=== PATIENT | male | born 1955 | race Caucasian/White ===

== ENCOUNTER 2020-02-16 22:25 | Observation (INO) | payer MEDICARE ==
[2020-02-16] MEDS ORDERED: Zofran 4 MG/2 ML VIAL IV ONE (22:40)
[2020-02-16] MEDS ORDERED: MORPHINE SULFATE 2 MG INJ IV ONE (22:40)
--- NOTE | 2020-02-16 22:53 | ERPHSYRPT ---
- History of Present Illness Time Seen by Provider: 02/16/20 22:50 Source: patient Exam Limitations: other (MR) Patient Subjective Stated Complaint: pt's poa states that he fell this afternoon and has had lt side pain only with movement and standing. pt states he also has had 2 stools with blood n them today. unable to describe stools or amount of blood Triage Nursing Assessment: pt alert and oriented, answers questions, unable to answer some questions d/t skin warm and dry. respirations nonlabored with lungs cta. abd soft and nontender to light palpation. bowel sounds present x4. no stools at this time. Physician History: Patient is a 64-year-old male with a history of MR who presents to our ED with his POA/uncle for evaluation of abdominal pain and bloody stool. Patient reportedly fell today. After his fall patient complained of left sided abdominal pain. Pain was primarily with movement and standing. Patient's uncle examined patient and found patient to be tender at his left abdomen. Later toda y patient had a bloody bowel movements. Patient advised his uncle and his uncle brought patient to our ED. Upon arrival patient was found to be febrile. Patient was tachycardic as well. Patient states that he had 2 bloody bowel movements. However he is unable to quantify the quality and quantity of the blood observed. No other injuries reported. Pain described as an ache that is localized. No radiation. Pain improved with rest. Patient voices no other complaints at this time. Allergies/Adverse Reactions: penicillin G Allergy (Intermediate, Verified 05/22/15 12:38) Hives Hx Tetanus, Diphtheria Vaccination/Date Given: Yes Hx Influenza Vaccination/Date Given: Yes Hx Pneumococcal Vaccination/Date Given: Yes Immunizations Up to Date: Yes Travel Risk - International Travel Have you traveled outside of the country in past 3 weeks: No - Coronavirus Screening Are you exhibiting any of the following symptoms?: Yes Symptoms: Fever Close contact with a COVID-19 positive Pt in past 14-21 Days: No - Past Medical History Pertinent Past Medical History: Yes Cardiac History: Hypertension Respiratory History: Other Endocrine Medical History: Hypothyroidism GI Medical History: Diverticulitis, GERD, Hernia Psycho-Social History: Anxiety, Attention Deficit Disorder, Depression Other Medical History: MILD RETARDATION. sees dr garcia and uses inhalers- unsure of diagnosis - Past Surgical History Past Surgical History: Yes Gastrointestinal: Hernia Repair - Social History Smoking Status: Never smoker Exposure to second hand smoke: No Drug Use: none Patient Lives Alone: Yes (lives with brother) - Nursing Vital Signs Nursing Vital Signs: Initial Vital Signs Temperature 101 F 02/16/20 22:41 Pulse Rate 123 H 02/16/20 22:41 Respiratory Rate 16 02/16/20 22:41 Blood Pressure 167/91 02/16/20 22:41 O2 Sat by Pulse Oximetry 97 02/16/20 22:41 Pain Scale Pain Intensity 10 - Physical Exam SpO2: 97 Ordered Tests: Active Orders 24 hr Category Date Time Status IV Insertion STAT Care 02/16/20 22:40 Active ABDOMEN AND PELVIS W CONTRAST [CT] Stat Exams 02/16/20 22:41 Ordered BLOOD CULTURE Stat Lab 02/16/20 23:08 Received CBC W DIFF Stat Lab 02/16/20 23:07 Completed CMP Stat Lab 02/16/20 23:07 Received LIPASE Stat Lab 02/16/20 23:07 Received Lactic Acid Stat Lab 02/16/20 23:00 Completed TROPONIN Q3H Lab 02/16/20 23:07 Received TROPONIN Q3H Lab 02/17/20 01:45 Ordered TROPONIN Q3H Lab 02/17/20 04:45 Ordered TROPONIN Q3H Lab 02/17/20 07:45 Ordered TROPONIN Q3H Lab 02/17/20 10:45 Ordered UA W/RFX UR CULTURE Stat Lab 02/16/20 23:57 Received Medication Summary Generic Name Dose Route Start Last Admin Trade Name Freq PRN Reason Stop Dose Admin Sodium Chloride 1,000 mls @ 100 mls/hr 02/16/20 22:45 02/16/20 23:33 Sodium Chloride 0.9% 1000 Ml IV 03/17/20 22:44 100 mls/hr .Q10H CARLOS Administration Sodium Chloride 500 mls @ 500 mls/hr 02/16/20 23:37 Sodium Chloride 0.9% 500 Ml IV 02/17/20 00:36 .Q1H ONE Discontinued Medications Generic Name Dose Route Start Last Admin Trade Name Freq PRN Reason Stop Dose Admin Morphine Sulfate 2 mg 02/16/20 22:40 02/16/20 23:31 Morphine Sulfate 2 Mg Inj IV 02/16/20 22:41 2 mg STAT ONE Administration Morphine Sulfate Confirm 02/16/20 23:26 Morphine Sulfate 2 Mg Inj Administered 02/16/20 23:27 Dose 2 mg .ROUTE .STK-MED ONE Ondansetron HCl 4 mg 02/16/20 22:40 02/16/20 23:32 Zofran 4 Mg/2 Ml Vial IV 02/16/20 22:41 4 mg STAT ONE Administration Ondansetron HCl Confirm 02/16/20 23:26 Zofran 4 Mg/2 Ml Vial Administered 02/16/20 23:27 Dose 4 mg .ROUTE .STK-MED ONE Lab/Rad Data: Laboratory Result Diagrams 02/16/20 23:07 Laboratory Results 02/16/20 02/16/20 Range/Units 23:07 23:00 WBC 11.7 H (4.0-10.5) K/mm3 RBC 4.47 (4.1-5.6) M/mm3 Hgb 13.7 (12.5-18.0) gm/dl Hct 40.7 L (42-50) % MCV 91.1 (78-100) fl MCH 30.6 (26-32) pg MCHC 33.7 (32-36) g/dl RDW 14.1 H (11.5-14.0) % Plt Count 273 (150-450) K/mm3 MPV 9.4 (7.5-11.0) fl Gran % 94.6 H (36.0-66.0) % Eos # (Auto) 0.07 (0-0.5) Absolute Lymphs (auto) 0.37 L (1.0-4.6) Absolute Monos (auto) 0.14 (0.0-1.3) Lymphocytes % 3.2 L (24.0-44.0) % Monocytes % 1.2 (0.0-12.0) % Eosinophils % 0.6 (0.00-5.0) % Basophils % 0.4 (0.0-0.4) % Absolute Granulocytes 11.02 H (1.4-6.9) Basophils # 0.05 (0-0.4) Lactic Acid 2.2 H (0.4-2.0) - Departure Referrals: LIZBEHT COBB [Primary Care Provider] -
[2020-02-16 23:11] LABS: Absolute Neutrophil Ct (ANC) 11.02 (1.4-6.9); BASOPHIL % 0.4 % (0.0-0.4); Basophil (Absolute #) 0.05 (0-0.4); Eosinophil % 0.6 % (0.00-5.0); Eosinophil (Absolute #) 0.07 (0-0.5); Hematocrit 40.7 % (42-50); Hemoglobin 13.7 gm/dl (12.5-18.0); Lymphocyte (Absolute #) 0.37 (1.0-4.6); Lymphocytes % 3.2 % (24.0-44.0); Mean Cell Volume 91.1 fl (78-100); Mean Corpuscular Hemoglobin 30.6 pg (26-32); Mean Corpuscular Hgb Concent. 33.7 g/dl (32-36); Mean Platelet Volume 9.4 fl (7.5-11.0); Monocyte (Absolute #) 0.14 (0.0-1.3); Monocytes % 1.2 % (0.0-12.0); Neutrophil % 94.6 % (36.0-66.0); Platelet Count 273 K/mm3 (150-450); Red Blood Count 4.47 M/mm3 (4.1-5.6); Red Cell Distribution Width 14.1 % (11.5-14.0); White Blood Count 11.7 K/mm3 (4.0-10.5)
[2020-02-16] MEDS ORDERED: Zofran 4 MG/2 ML VIAL ONE (23:26)
[2020-02-16] MEDS ORDERED: MORPHINE SULFATE 2 MG INJ ONE (23:26)
[2020-02-16] MEDS: Sodium Chloride 0.9% 1000 ML 1,000 ML IV SCH (23:33)
[2020-02-16] MEDS ORDERED: Sodium Chloride 0.9% 500 ML 500 ML IV ONE (23:37)
[2020-02-17 00:09] LABS: Appearance CLEAR (CLEAR); Bilirubin NEGATIVE (NEGATIVE); Blood SMALL Ery/ul (0-5); Glucose 50 mg/dL (NEGATIVE); Ketones NEGATIVE (NEGATIVE); Leukocyte Esterase NEGATIVE (NEGATIVE); Nitrite NEGATIVE (NEGATIVE); Protein,Urine Dip NEGATIVE (Negative); Specific Gravity 1.008 (1.005-1.025); Urobilinogen NEGATIVE mg/dL (0-1)
--- NOTE | 2020-02-17 00:13 | ERPHSYRPT ---
- History of Present Illness Time Seen by Provider: 02/16/20 22:50 Patient Subjective Stated Complaint: pt's poa states that he fell this afternoon and has had lt side pain only with movement and standing. pt states he also has had 2 stools with blood n them today. unable to describe stools or amount of blood Triage Nursing Assessment: pt alert and oriented, answers questions, unable to answer some questions d/t skin warm and dry. respirations nonlabored with lungs cta. abd soft and nontender to light palpation. bowel sounds present x4. no stools at this time. Physician History: Patient is a 64-year-old male with a history of MR who presents to our ED with his POA/uncle for evaluation of abdominal pain and bloody stool. Patient reportedly fell today. After his fall patient complained of left sided abdominal pain. Pain was primarily with movement and standing. Patient's uncle examined patient and found patient to be tender at his left abdomen. Later today patient had a bloody bowel movements. Patient advised his uncle and his uncle brought patient to our ED. Upon arrival patient was found to be febrile. Patient was tachycardic as well. Patient states that he had 2 bloody bowel movements. However he is unable to quantify the quality and quantity of the blood observed. No other injuries reported. Pain described as an ache that is localized. No radiation. Pain improved with rest. Patient voices no other complaints at this time. Timing/Duration: today Activities at Onset: none Quality: aching Abdominal Pain Onset Location: other (Left abdomen.) Pain Radiation: no radiation Severity of Pain-Max: moderate Severity of Pain-Current: mild Modifying Factors: Improves With: nothing, eating, movement, palpation Associated Symptoms: fever/chills Previous symptoms: no prior history Allergies/Adverse Reactions: penicillin G Allergy (Intermediate, Verified 05/22/15 12:38) Hives Hx Tetanus, Diphtheria Vaccination/Date Given: Yes Hx Influenza Vaccination/Date Given: Yes Hx Pneumococcal Vaccination/Date Given: Yes Immunizations Up to Date: Yes Travel Risk - International Travel Have you traveled outside of the country in past 3 weeks: No - Coronavirus Screening Are you exhibiting any of the following symptoms?: Yes Symptoms: Fever Close contact with a COVID-19 positive Pt in past 14-21 Days: No - Review of Systems All Other Systems: Unable due to condition - Past Medical History Pertinent Past Medical History: Yes Cardiac History: Hypertension Respiratory History: Other Endocrine Medical History: Hypothyroidism GI Medical History: Diverticulitis, GERD, Hernia Psycho-Social History: Anxiety, Attention Deficit Disorder, Depression Other Medical History: MILD RETARDATION. sees dr garcia and uses inhalers- unsure of diagnosis - Past Surgical History Past Surgical History: Yes Gastrointestinal: Hernia Repair - Social History Smoking Status: Never smoker Exposure to second hand smoke: No Drug Use: none Patient Lives Alone: Yes (lives with brother) - Nursing Vital Signs Nursing Vital Signs: Initial Vital Signs Temperature 101 F 02/16/20 22:41 Pulse Rate 123 H 02/16/20 22:41 Respiratory Rate 16 02/16/20 22:41 Blood Pressure 167/91 02/16/20 22:41 O2 Sat by Pulse Oximetry 97 02/16/20 22:41 Pain Scale Pain Intensity 0 - Physical Exam General Appearance: no apparent distress, alert Eye Exam: PERRL/EOMI, eyes nml inspection Ears, Nose, Throat Exam: normal ENT inspection, pharynx normal, moist mucous membranes Neck Exam: normal inspection, non-tender, supple, full range of motion Respiratory Exam: normal breath sounds, lungs clear, No respiratory distress Cardiovascular Exam: regular rate/rhythm, normal heart sounds Gastrointestinal/Abdomen Exam: soft, tenderness, other (Tenderness palpation left abdomen. Overlying soft tissue intact. No signs of trauma.), No distention, No mass Back Exam: normal inspection, normal range of motion, No CVA tenderness, No vertebral tenderness Extremity Exam: normal inspection, normal range of motion, pelvis stable Neurologic Exam: alert, oriented x 3, cooperative, normal mood/affect, nml cerebellar function, sensation nml, No motor deficits Skin Exam: normal color, warm, dry Lymphatic Exam: No adenopathy SpO2 Interpretation: normal SpO2: 97 O2 Delivery: Room Air - Course Nursing assessment & vital signs reviewed: Yes - CT Exams Abdomen/Pelvis CT Interpretation: Tele-radiologist Report (Large gallbladder. Differential diagnosis includes fasting state and cholecystitis. No pericholecystic inflammatory changes.) Ordered Tests: Active Orders 24 hr Category Date Time Status IV Insertion STAT Care 02/16/20 22:40 Active ABDOMEN AND PELVIS W CONTRAST [CT] Stat Exams 02/17/20 00:03 Taken BLOOD CULTURE Stat Lab 02/16/20 23:08 Received CBC W DIFF Stat Lab 02/16/20 23:07 Completed CMP Stat Lab 02/16/20 23:07 Completed LIPASE Stat Lab 02/16/20 23:07 Completed Lactic Acid Stat Lab 02/16/20 23:00 Completed Lactic Acid Stat Lab 02/17/20 01:10 Completed TROPONIN Q3H Lab 02/16/20 23:07 Completed TROPONIN Q3H Lab 02/17/20 02:02 Completed TROPONIN Q3H Lab 02/17/20 04:45 Ordered TROPONIN Q3H Lab 02/17/20 07:45 Ordered TROPONIN Q3H Lab 02/17/20 10:45 Ordered UA W/RFX UR CULTURE Stat Lab 02/16/20 23:57 Completed Transfer Order Routine Transfer 02/17/20 Ordered Medication Summary Generic Name Dose Route Start Last Admin Trade Name Freq PRN Reason Stop Dose Admin Sodium Chloride 1,000 mls @ 100 mls/hr 02/16/20 22:45 02/16/20 23:33 Sodium Chloride 0.9% 1000 Ml IV 03/17/20 22:44 100 mls/hr .Q10H CARLOS Administration Discontinued Medications Generic Name Dose Route Start Last Admin Trade Name Freq PRN Reason Stop Dose Admin Sodium Chloride 500 mls @ 500 mls/hr 02/16/20 23:37 02/17/20 01:45 Sodium Chloride 0.9% 500 Ml IV 02/17/20 00:36 Not Given .Q1H ONE Levofloxacin/Dextrose 500 mg in 100 mls @ 100 mls/hr 02/17/20 00:23 02/17/20 01:43 Levofloxacin 500mg/100ml D5w IV 02/17/20 01:22 Infused STAT STA Infusion Metronidazole 500 mg in 100 mls @ 200 mls/hr 02/17/20 00:24 02/17/20 01:35 Flagyl 500 Mg Ivpb IV 02/17/20 00:53 Infused STAT STA Infusion Metronidazole Confirm 02/17/20 00:31 Flagyl 500 Mg Ivpb Administered 02/17/20 00:32 Dose 500 mg in 100 mls @ ud IV .STK-MED ONE Levofloxacin/Dextrose Confirm 02/17/20 00:31 Levofloxacin 500mg/100ml D5w Administered 02/17/20 00:32 Dose 500 mg in 100 mls @ ud IV .STK-MED ONE Morphine Sulfate 2 mg 02/16/20 22:40 02/16/20 23:31 Morphine Sulfate 2 Mg Inj IV 02/16/20 22:41 2 mg STAT ONE Administration Morphine Sulfate Confirm 02/16/20 23:26 Morphine Sulfate 2 Mg Inj Administered 02/16/20 23:27 Dose 2 mg .ROUTE .STK-MED ONE Ondansetron HCl 4 mg 02/16/20 22:40 02/16/20 23:32 Zofran 4 Mg/2 Ml Vial IV 02/16/20 22:41 4 mg STAT ONE Administration Ondansetron HCl Confirm 02/16/20 23:26 Zofran 4 Mg/2 Ml Vial Administered 02/16/20 23:27 Dose 4 mg .ROUTE .STK-MED ONE Lab/Rad Data: Laboratory Result Diagrams 02/16/20 23:07 02/16/20 23:07 Laboratory Results 02/17/20 02/17/20 02/16/20 Range/Units 02:02 01:10 23:57 WBC (4.0-10.5) K/mm3 RBC (4.1-5.6) M/mm3 Hgb (12.5-18.0) gm/dl Hct (42-50) % MCV (78-100) fl MCH (26-32) pg MCHC (32-36) g/dl RDW (11.5-14.0) % Plt Count (150-450) K/mm3 MPV (7.5-11.0) fl Gran % (36.0-66.0) % Eos # (Auto) (0-0.5) Absolute Lymphs (auto) (1.0-4.6) Absolute Monos (auto) (0.0-1.3) Lymphocytes % (24.0-44.0) % Monocytes % (0.0-12.0) % Eosinophils % (0.00-5.0) % Basophils % (0.0-0.4) % Absolute Granulocytes (1.4-6.9) Basophils # (0-0.4) Sodium (137-145) mmol/L Potassium (3.5-5.1) mmol/L Chloride (98-107) mmol/L Carbon Dioxide (22-30) mmol/L Anion Gap (5-15) MEQ/L BUN (9-20) mg/dL Creatinine (0.66-1.25) mg/dL Estimated GFR ML/MIN Glucose (74-106) mg/dL Lactic Acid 1.0 (0.4-2.0) Calcium (8.4-10.2) mg/dL Total Bilirubin (0.2-1.3) mg/dL AST (17-59) U/L ALT (0-50) U/L Alkaline Phosphatase (38-126) U/L Troponin I < 0.012 (0.000-0.034) ng/mL Serum Total Protein (6.3-8.2) g/dL Albumin (3.5-5.0) g/dL Lipase (23-300) U/L Urine Color STRAW (YELLOW) Urine Appearance CLEAR (CLEAR) Urine pH 7.0 (5-6) Ur Specific [place] 1.008 (1.005-1.025) Urine Protein NEGATIVE (Negative) Urine Ketones NEGATIVE (NEGATIVE) Urine Blood SMALL (0-5) Matt/ul Urine Nitrite NEGATIVE (NEGATIVE) Urine Bilirubin NEGATIVE (NEGATIVE) Urine Urobilinogen NEGATIVE (0-1) mg/dL Ur Leukocyte Esterase NEGATIVE (NEGATIVE) Urine WBC (Auto) NONE (0-5) /HPF Urine RBC (Auto) NONE (0-2) /HPF U Epithel Cells (Auto) NONE (FEW) /HPF Urine Bacteria (Auto) NONE (NEGATIVE) /HPF Urine Culture Reflexed NO (NO) Urine Glucose 50 (NEGATIVE) mg/dL 02/16/20 02/16/20 02/16/20 Range/Units 23:07 23:07 23:07 WBC 11.7 H (4.0-10.5) K/mm3 RBC 4.47 (4.1-5.6) M/mm3 Hgb 13.7 (12.5-18.0) gm/dl Hct 40.7 L (42-50) % MCV 91.1 (78-100) fl MCH 30.6 (26-32) pg MCHC 33.7 (32-36) g/dl RDW 14.1 H (11.5-14.0) % Plt Count 273 (150-450) K/mm3 MPV 9.4 (7.5-11.0) fl Gran % 94.6 H (36.0-66.0) % Eos # (Auto) 0.07 (0-0.5) Absolute Lymphs (auto) 0.37 L (1.0-4.6) Absolute Monos (auto) 0.14 (0.0-1.3) Lymphocytes % 3.2 L (24.0-44.0) % Monocytes % 1.2 (0.0-12.0) % Eosinophils % 0.6 (0.00-5.0) % Basophils % 0.4 (0.0-0.4) % Absolute Granulocytes 11.02 H (1.4-6.9) Basophils # 0.05 (0-0.4) Sodium 128 L (137-145) mmol/L Potassium 3.5 (3.5-5.1) mmol/L Chloride 93 L (98-107) mmol/L Carbon Dioxide 26 (22-30) mmol/L Anion Gap 13.7 (5-15) MEQ/L BUN 8 L (9-20) mg/dL Creatinine 0.51 L (0.66-1.25) mg/dL Estimated GFR > 60.0 ML/MIN Glucose 125 H (74-106) mg/dL Lactic Acid (0.4-2.0) Calcium 9.5 (8.4-10.2) mg/dL Total Bilirubin 1.10 (0.2-1.3) mg/dL AST 21 (17-59) U/L ALT 15 (0-50) U/L Alkaline Phosphatase 92 (38-126) U/L Troponin I < 0.012 (0.000-0.034) ng/mL Serum Total Protein 7.2 (6.3-8.2) g/dL Albumin 4.4 (3.5-5.0) g/dL Lipase 28 (23-300) U/L Urine Color (YELLOW) Urine Appearance (CLEAR) Urine pH (5-6) Ur Specific [place] (1.005-1.025) Urine Protein (Negative) Urine Ketones (NEGATIVE) Urine Blood (0-5) Matt/ul Urine Nitrite (NEGATIVE) Urine Bilirubin (NEGATIVE) Urine Urobilinogen (0-1) mg/dL Ur Leukocyte Esterase (NEGATIVE) Urine WBC (Auto) (0-5) /HPF Urine RBC (Auto) (0-2) /HPF U Epithel Cells (Auto) (FEW) /HPF Urine Bacteria (Auto) (NEGATIVE) /HPF Urine Culture Reflexed (NO) Urine Glucose (NEGATIVE) mg/dL 02/16/20 Range/Units 23:00 WBC (4.0-10.5) K/mm3 RBC (4.1-5.6) M/mm3 Hgb (12.5-18.0) gm/dl Hct (42-50) % MCV (78-100) fl MCH (26-32) pg MCHC (32-36) g/dl RDW (11.5-14.0) % Plt Count (150-450) K/mm3 MPV (7.5-11.0) fl Gran % (36.0-66.0) % Eos # (Auto) (0-0.5) Absolute Lymphs (auto) (1.0-4.6) Absolute Monos (auto) (0.0-1.3) Lymphocytes % (24.0-44.0) % Monocytes % (0.0-12.0) % Eosinophils % (0.00-5.0) % Basophils % (0.0-0.4) % Absolute Granulocytes (1.4-6.9) Basophils # (0-0.4) Sodium (137-145) mmol/L Potassium (3.5-5.1) mmol/L Chloride (98-107) mmol/L Carbon Dioxide (22-30) mmol/L Anion Gap (5-15) MEQ/L BUN (9-20) mg/dL Creatinine (0.66-1.25) mg/dL Estimated GFR ML/MIN Glucose (74-106) mg/dL Lactic Acid 2.2 H (0.4-2.0) Calcium (8.4-10.2) mg/dL Total Bilirubin (0.2-1.3) mg/dL AST (17-59) U/L ALT (0-50) U/L Alkaline Phosphatase (38-126) U/L Troponin I (0.000-0.034) ng/mL Serum Total Protein (6.3-8.2) g/dL Albumin (3.5-5.0) g/dL Lipase (23-300) U/L Urine Color (YELLOW) Urine Appearance (CLEAR) Urine pH (5-6) Ur Specific [place] (1.005-1.025) Urine Protein (Negative) Urine Ketones (NEGATIVE) Urine Blood (0-5) Matt/ul Urine Nitrite (NEGATIVE) Urine Bilirubin (NEGATIVE) Urine Urobilinogen (0-1) mg/dL Ur Leukocyte Esterase (NEGATIVE) Urine WBC (Auto) (0-5) /HPF Urine RBC (Auto) (0-2) /HPF U Epithel Cells (Auto) (FEW) /HPF Urine Bacteria (Auto) (NEGATIVE) /HPF Urine Culture Reflexed (NO) Urine Glucose (NEGATIVE) mg/dL - Progress Progress: improved Progress Note: 02/17/20 03:33 Patient reassessed. Symptoms improved. Tachycardia resolved. Patient has a leukocytosis of 11.7 with a lactic acid of 2.2. CT shows a enlarged gallbladder. Antibiotics infused. IV fluids infused. Patient describes bloody stools. He was unable to produce a sample here in our ED. This will need to be further investigated. Hyponatremia at 128. IV fluids infused. Patient will require a gallbladder ultrasound today to further evaluate the possibility of cholecystitis. Patient will likely require a colonoscopy as well possibly on an outpatient basis. We will admit patient for further work-up and observation. Plan of care discussed with patient. He agrees to admission to [facility] for further evaluation and treatment. Case discussed with Dr. Avilez who accepts admission to observation. Discussed with : Mike Will see patient in: hospital (observation) Counseled pt/family regarding: lab results, diagnosis, rad results - Departure Departure Disposition: Observation Clinical Impression: Fever, Tachycardia, GI bleed, Hyponatremia, Lactic acidosis, Enlarged gallbladder Condition: Stable Critical Care Time: No Referrals: LIZBETH COBB [Primary Care Provider] -
[2020-02-17 00:22] LABS: ALBUMIN 4.4 g/dL (3.5-5.0); ALKALINE PHOSPHATASE 92 U/L (38-126); ANION GAP 13.7 MEQ/L (5-15); BLOOD UREA NITROGEN 8 mg/dL (9-20); CHLORIDE 93 mmol/L (98-107); Calcium 9.5 mg/dL (8.4-10.2); Carbon Dioxide 26 mmol/L (22-30); Creatinine 1 0.51 mg/dL (0.66-1.25); Glucose 125 mg/dL (74-106); LIPASE 28 U/L (23-300); Potassium 3.5 mmol/L (3.5-5.1); SGOT/AST 21 U/L (17-59); SGPT/ALT 15 U/L (0-50); SODIUM 128 mmol/L (137-145); Total Protein 7.2 g/dL (6.3-8.2)
[2020-02-17] MEDS ORDERED: Levofloxacin 500MG/100ML D5W 500 MG/100 ML BAG IV STA (00:23)
[2020-02-17] MEDS ORDERED: FLAGYL 500 MG IVPB 500 MG/100 ML BAG IV STA (00:24)
[2020-02-17] MEDS ORDERED: FLAGYL 500 MG IVPB 500 MG/100 ML BAG IV ONE (00:31)
[2020-02-17] MEDS ORDERED: Levofloxacin 500MG/100ML D5W 500 MG/100 ML BAG IV ONE (00:31)
[2020-02-17] MEDS ORDERED: PROTONIX 40 MG IV IV ONE ×2 (03:42→03:46)
[2020-02-17] MEDS ORDERED: MORPHINE SULFATE 2 MG INJ IV PRN (04:33)
[2020-02-17] MEDS ORDERED: DILAUDID 2 MG INJECTION IV PRN (07:10)
--- NOTE | 2020-02-17 08:49 | PCM.HP ---
History of Present Illness - Chief Complaint Chief Complaint: Fever, abdominal pain Date: 02/17/20 History of Present Illness: is a 64 year old male. - Review of Systems Constitutional: No Fever, No Chills Eyes: No Symptoms Ears, Nose, & Throat: No Symptoms Respiratory: No Cough, No Short Of Breath Cardiac: Chest Pain (lateral to palpation after fell prior to onset of symptoms), No Edema, No Syncope Abdominal/Gastrointestinal: Abdominal Pain, No Nausea, No Vomiting, No Diarrhea Genitourinary Symptoms: No Dysuria Musculoskeletal: No Back Pain, No Neck Pain Skin: No Rash Neurological: No Dizziness, No Focal Weakness, No Sensory Changes Psychological: No Symptoms Endocrine: No Symptoms Hematologic/Lymphatic: No Symptoms Immunological/Allergic: No Symptoms Medications & Allergies Allergies/Adverse Reactions: Allergies Allergy/AdvReac Type Severity Reaction Status Date / Time penicillin G Allergy Intermediate Hives Verified 05/22/15 12:38 - Past Medical History Past Medical History: Yes Cardiac History: Hypertension Respiratory History: Other Endocrine Medical History: Hypothyroidism GI Medical History: Diverticulitis, GERD, Hernia Pyscho-Social History: Anxiety, Attention Deficit Disorder, Depression Comment: MILD RETARDATION. sees dr garcia and uses inhalers- unsure of diagnosis - Past Surgical History Past Surgical History: Yes GI Surgical History: Hernia Repair - Social History Smoking Status: Never smoker Exposure to second hand smoke: No Alcohol: None Drug Use: none - Physical Exam Vital Signs: Vital Signs - 24 hr Temp Pulse Resp BP Pulse Ox 02/17/20 08:00 98.5 F 87 21 112/61 96 02/17/20 04:56 98.2 F 87 18 130/68 99 02/17/20 04:33 99 02/17/20 03:37 97 02/17/20 03:17 97 H 20 122/67 96 02/17/20 02:15 109 H 123/74 97 02/17/20 01:06 114 H 145/83 96 02/16/20 23:30 114 H 23 150/88 97 02/16/20 22:41 101 F 123 H 16 167/91 97 General Appearance: no apparent distress, alert Neurologic Exam: alert, oriented x 3, cooperative, normal mood/affect, nml cerebellar function, nml station & gait, sensation nml, No motor deficits Eye Exam: PERRL/EOMI, eyes nml inspection Ears, Nose, Throat Exam: normal ENT inspection, TMs normal, pharynx normal, moist mucous membranes Neck Exam: normal inspection, non-tender, supple, full range of motion Respiratory Exam: normal breath sounds, chest tenderness (lateral left mid ribs), lungs clear, No respiratory distress Cardiovascular Exam: regular rate/rhythm, normal heart sounds, normal peripheral pulses Gastrointestinal/Abdomen Exam: soft, normal bowel sounds, No tenderness, No mass Back Exam: normal inspection, normal range of motion, No CVA tenderness, No vertebral tenderness Extremity Exam: normal inspection, normal range of motion, pelvis stable Skin Exam: normal color, warm, dry, No rash Lymphatic Exam: No adenopathy Results - Labs Lab/Micro Results: Lab Results-Last 24 Hours 02/16/20 02/16/20 02/16/20 Range/Units 23:00 23:07 23:07 WBC 11.7 H (4.0-10.5) K/mm3 RBC 4.47 (4.1-5.6) M/mm3 Hgb 13.7 (12.5-18.0) gm/dl Hct 40.7 L (42-50) % MCV 91.1 (78-100) fl MCH 30.6 (26-32) pg MCHC 33.7 (32-36) g/dl RDW 14.1 H (11.5-14.0) % Plt Count 273 (150-450) K/mm3 MPV 9.4 (7.5-11.0) fl Gran % 94.6 H (36.0-66.0) % Eos # (Auto) 0.07 (0-0.5) Absolute Lymphs (auto) 0.37 L (1.0-4.6) Absolute Monos (auto) 0.14 (0.0-1.3) Lymphocytes % 3.2 L (24.0-44.0) % Monocytes % 1.2 (0.0-12.0) % Eosinophils % 0.6 (0.00-5.0) % Basophils % 0.4 (0.0-0.4) % Absolute Granulocytes 11.02 H (1.4-6.9) Basophils # 0.05 (0-0.4) Sodium 128 L (137-145) mmol/L Potassium 3.5 (3.5-5.1) mmol/L Chloride 93 L (98-107) mmol/L Carbon Dioxide 26 (22-30) mmol/L Anion Gap 13.7 (5-15) MEQ/L BUN 8 L (9-20) mg/dL Creatinine 0.51 L (0.66-1.25) mg/dL Estimated GFR > 60.0 ML/MIN Glucose 125 H (74-106) mg/dL Lactic Acid 2.2 H (0.4-2.0) Calcium 9.5 (8.4-10.2) mg/dL Total Bilirubin 1.10 (0.2-1.3) mg/dL AST 21 (17-59) U/L ALT 15 (0-50) U/L Alkaline Phosphatase 92 (38-126) U/L Troponin I (0.000-0.034) ng/mL Serum Total Protein 7.2 (6.3-8.2) g/dL Albumin 4.4 (3.5-5.0) g/dL Lipase 28 (23-300) U/L Urine Color (YELLOW) Urine Appearance (CLEAR) Urine pH (5-6) Ur Specific Spearfish (1.005-1.025) Urine Protein (Negative) Urine Ketones (NEGATIVE) Urine Blood (0-5) Mtat/ul Urine Nitrite (NEGATIVE) Urine Bilirubin (NEGATIVE) Urine Urobilinogen (0-1) mg/dL Ur Leukocyte Esterase (NEGATIVE) Urine WBC (Auto) (0-5) /HPF Urine RBC (Auto) (0-2) /HPF U Epithel Cells (Auto) (FEW) /HPF Urine Bacteria (Auto) (NEGATIVE) /HPF Urine Culture Reflexed (NO) Urine Glucose (NEGATIVE) mg/dL 02/16/20 02/16/20 02/17/20 Range/Units 23:07 23:57 01:10 WBC (4.0-10.5) K/mm3 RBC (4.1-5.6) M/mm3 Hgb (12.5-18.0) gm/dl Hct (42-50) % MCV (78-100) fl MCH (26-32) pg MCHC (32-36) g/dl RDW (11.5-14.0) % Plt Count (150-450) K/mm3 MPV (7.5-11.0) fl Gran % (36.0-66.0) % Eos # (Auto) (0-0.5) Absolute Lymphs (auto) (1.0-4.6) Absolute Monos (auto) (0.0-1.3) Lymphocytes % (24.0-44.0) % Monocytes % (0.0-12.0) % Eosinophils % (0.00-5.0) % Basophils % (0.0-0.4) % Absolute Granulocytes (1.4-6.9) Basophils # (0-0.4) Sodium (137-145) mmol/L Potassium (3.5-5.1) mmol/L Chloride (98-107) mmol/L Carbon Dioxide (22-30) mmol/L Anion Gap (5-15) MEQ/L BUN (9-20) mg/dL Creatinine (0.66-1.25) mg/dL Estimated GFR ML/MIN Glucose (74-106) mg/dL Lactic Acid 1.0 (0.4-2.0) Calcium (8.4-10.2) mg/dL Total Bilirubin (0.2-1.3) mg/dL AST (17-59) U/L ALT (0-50) U/L Alkaline Phosphatase (38-126) U/L Troponin I < 0.012 (0.000-0.034) ng/mL Serum Total Protein (6.3-8.2) g/dL Albumin (3.5-5.0) g/dL Lipase (23-300) U/L Urine Color STRAW (YELLOW) Urine Appearance CLEAR (CLEAR) Urine pH 7.0 (5-6) Ur Specific Spearfish 1.008 (1.005-1.025) Urine Protein NEGATIVE (Negative) Urine Ketones NEGATIVE (NEGATIVE) Urine Blood SMALL (0-5) Matt/ul Urine Nitrite NEGATIVE (NEGATIVE) Urine Bilirubin NEGATIVE (NEGATIVE) Urine Urobilinogen NEGATIVE (0-1) mg/dL Ur Leukocyte Esterase NEGATIVE (NEGATIVE) Urine WBC (Auto) NONE (0-5) /HPF Urine RBC (Auto) NONE (0-2) /HPF U Epithel Cells (Auto) NONE (FEW) /HPF Urine Bacteria (Auto) NONE (NEGATIVE) /HPF Urine Culture Reflexed NO (NO) Urine Glucose 50 (NEGATIVE) mg/dL 08/14/20 Range/Units 02:02 WBC (4.0-10.5) K/mm3 RBC (4.1-5.6) M/mm3 Hgb (12.5-18.0) gm/dl Hct (42-50) % MCV (78-100) fl MCH (26-32) pg MCHC (32-36) g/dl RDW (11.5-14.0) % Plt Count (150-450) K/mm3 MPV (7.5-11.0) fl Gran % (36.0-66.0) % Eos # (Auto) (0-0.5) Absolute Lymphs (auto) (1.0-4.6) Absolute Monos (auto) (0.0-1.3) Lymphocytes % (24.0-44.0) % Monocytes % (0.0-12.0) % Eosinophils % (0.00-5.0) % Basophils % (0.0-0.4) % Absolute Granulocytes (1.4-6.9) Basophils # (0-0.4) Sodium (137-145) mmol/L Potassium (3.5-5.1) mmol/L Chloride (98-107) mmol/L Carbon Dioxide (22-30) mmol/L Anion Gap (5-15) MEQ/L BUN (9-20) mg/dL Creatinine (0.66-1.25) mg/dL Estimated GFR ML/MIN Glucose (74-106) mg/dL Lactic Acid (0.4-2.0) Calcium (8.4-10.2) mg/dL Total Bilirubin (0.2-1.3) mg/dL AST (17-59) U/L ALT (0-50) U/L Alkaline Phosphatase (38-126) U/L Troponin I < 0.012 (0.000-0.034) ng/mL Serum Total Protein (6.3-8.2) g/dL Albumin (3.5-5.0) g/dL Lipase (23-300) U/L Urine Color (YELLOW) Urine Appearance (CLEAR) Urine pH (5-6) Ur Specific Spearfish (1.005-1.025) Urine Protein (Negative) Urine Ketones (NEGATIVE) Urine Blood (0-5) Matt/ul Urine Nitrite (NEGATIVE) Urine Bilirubin (NEGATIVE) Urine Urobilinogen (0-1) mg/dL Ur Leukocyte Esterase (NEGATIVE) Urine WBC (Auto) (0-5) /HPF Urine RBC (Auto) (0-2) /HPF U Epithel Cells (Auto) (FEW) /HPF Urine Bacteria (Auto) (NEGATIVE) /HPF Urine Culture Reflexed (NO) Urine Glucose (NEGATIVE) mg/dL - Radiology Impressions Radiology Exams & Impressions: Radiology Procedures Category Date Time Status ABDOMEN AND PELVIS W CONTRAST [CT] Stat Exams 02/17/20 00:03 Taken GALLBLADDER [US] Routine Exams 02/17/20 08:02 Taken Assessment/Plan (1) Rib pain on left side Current Visit: Yes Status: Acute Assessment & Plan: Pt. reports fell yesterday when he lost balance and hit left ribs Code(s): R07.81 - PLEURODYNIA (2) Enlarged gallbladder Current Visit: Yes Status: Acute Assessment & Plan: Noted on CT will check with u/s Code(s): K82.8 - OTHER SPECIFIED DISEASES OF GALLBLADDER (3) Fever Current Visit: Yes Status: Acute Assessment & Plan: Reported by home care companion, none noted in hospital Code(s): R50.9 - FEVER, UNSPECIFIED (4) GI bleed Current Visit: Yes Status: Acute Assessment & Plan: reported by housekeeping aide, none noted yet at hospital will consult surgery Code(s): K92.2 - GASTROINTESTINAL HEMORRHAGE, UNSPECIFIED
--- NOTE | 2020-02-17 08:58 | XRAY ---
Indication: Abdomen pain. Two-dimensional gallbladder sonogram performed. Comparison: None Gallbladder mildly distended without gallstones, wall thickening, or pericholecystic fluid. Common bile duct measures 4.9 mm. No intrahepatic biliary distention. Remaining visualized liver, pancreas, and right kidney sonographically unremarkable. Right kidney measures 10.5 cm in length. No ascites. Impression: Negative gallbladder sonogram.
--- NOTE | 2020-02-17 08:58 | XRAY ---
Indication: Left lower rib pain and blood in stool following fall. Multiple contiguous axial images obtained through the abdomen and pelvis using 80 cc Isovue 370 contrast only. Comparison: None. Mild respiration artifact throughout the exam. Lung bases demonstrates mild bibasilar dependent atelectasis. Heart is not enlarged. Small hiatal hernia. Noncontrasted stomach and bowel loops remain nonobstructed. Appendix not seen. Mild fecal debris predominantly in the ascending and transverse colon. Proximal sigmoid diverticulosis without diverticulitis. No free fluid/air. Gallbladder moderately distended without gallstones or biliary distention. Mild fatty-replaced pancreas. 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 Remaining liver, gallbladder, pancreas, spleen, kidneys, ureters, and bladder appear unremarkable. Minimal aortic calcifications. No AAA or pathologic retroperitoneal lymphadenopathy. Osseous structures intact with mild degenerative changes throughout the lumbar spine and minimal double curvature thoracolumbar scoliosis. Anterior lateral left 6th rib demonstrates tiny cortical fracture. There has been left inguinal hernia surgery. Impression: 1. Respiration artifact. 2. Left 6th rib cortical fracture. 3. Small hiatal hernia, sigmoid diverticulosis, distended gallbladder, and chronic bony findings. 4. Remaining CT abdomen/pelvis with contrast exam is negative. Comment: Preliminary interpretation was made by [facility] who does not report incidental rib fracture and hiatal hernia.
[2020-02-17] MEDS ORDERED: Ventolin Hfa MDI IH PRN (10:14)
[2020-02-17] MEDS ORDERED: VENTOLIN COMMON CANISTER IH PRN (10:19)
[2020-02-17] MEDS ORDERED: MEDICATION INTERVENTION MC SCH ×2 (10:45)
--- NOTE | 2020-02-17 14:32 | XRAY ---
Indication: Left abdomen pain. Negative gallbladder sonogram. Comparison: None Patient received 5.7 mCi technetium 99 Choletec. Immediate anterior planar imaging was performed for 60 minutes. Normal hepatic activity on the first image. Normal biliary and biliary to bowel activity within 10 minutes. Normal gallbladder activity within 20 minutes. Patient then received 1.5 g of IV CCK slowly. Patient asymptomatic following injection. Ejection fraction calculated 17%, low. Impression: 1. HIDA scan portion of the exam is normal. 2. Low ejection fraction 17%. Rule out chronic cholecystitis.
[2020-02-17] MEDS: SYNTHROID 112 MCG PO SCH (14:36)
[2020-02-17] MEDS: Provigil 100MG Tablet PO SCH (14:50)
[2020-02-17] MEDS: Protonix 40MG Tablet PO SCH (15:19)
[2020-02-17] MEDS ORDERED: Golytely Solution 4000 ML PO ONE (16:30)
[2020-02-17] MEDS: Sodium Chloride 0.9% 1000 ML 1,000 ML IV SCH (18:17)
[2020-02-17] MEDS: VENTOLIN COMMON CANISTER IH SCH (19:50)
[2020-02-17] MEDS ORDERED: NON-FORMULARY ITEM (Atorvastatin Calcium [Atorvastatin Calcium] 20 MG) PO SCH (22:00)
[2020-02-17] MEDS ORDERED: ZOCOR 20MG PO SCH (22:00)
[2020-02-18 05:59] LABS: Absolute Neutrophil Ct (ANC) 4.02 (1.4-6.9); BASOPHIL % 0.3 % (0.0-0.4); Basophil (Absolute #) 0.02 (0-0.4); Eosinophil % 2.7 % (0.00-5.0); Eosinophil (Absolute #) 0.16 (0-0.5); Hematocrit 38.4 % (42-50); Hemoglobin 12.6 gm/dl (12.5-18.0); Lymphocyte (Absolute #) 0.97 (1.0-4.6); Lymphocytes % 16.6 % (24.0-44.0); Mean Corpuscular Hemoglobin 30.5 pg (26-32); Mean Corpuscular Hgb Concent. 32.8 g/dl (32-36); Mean Platelet Volume 9.7 fl (7.5-11.0); Monocyte (Absolute #) 0.66 (0.0-1.3); Monocytes % 11.3 % (0.0-12.0); Neutrophil % 69.1 % (36.0-66.0); Platelet Count 232 K/mm3 (150-450); Red Blood Count 4.13 M/mm3 (4.1-5.6); Red Cell Distribution Width 14.1 % (11.5-14.0); White Blood Count 5.8 K/mm3 (4.0-10.5)
[2020-02-18] MEDS ORDERED: Lactated Ringers 1,000 ML IV SCH (06:00)
[2020-02-18 06:28] LABS: ALBUMIN 3.5 g/dL (3.5-5.0); ALKALINE PHOSPHATASE 85 U/L (38-126); ANION GAP 9.9 MEQ/L (5-15); BLOOD UREA NITROGEN 7 mg/dL (9-20); CHLORIDE 97 mmol/L (98-107); Calcium 8.6 mg/dL (8.4-10.2); Carbon Dioxide 28 mmol/L (22-30); Creatinine 1 0.53 mg/dL (0.66-1.25); Glucose 81 mg/dL (74-106); Potassium 3.4 mmol/L (3.5-5.1); SGOT/AST 27 U/L (17-59); SGPT/ALT 15 U/L (0-50); SODIUM 131 mmol/L (137-145); Total Protein 6.4 g/dL (6.3-8.2)
[2020-02-18 06:48] LABS: TROPONIN < 0.012 ng/mL (0.000-0.034)
[2020-02-18] MEDS ORDERED: DIPRIVAN 200 MG/20 ML IV ONE (07:06)
[2020-02-18] MEDS ORDERED: Ketamine HCl 50 MG/ML ONE (07:06)
--- NOTE | 2020-02-18 08:12 | XRAY ---
Indication: Left rib pain following fall. Comparison: None 2 view left ribs demonstrates nondisplaced lateral 6th rib acute fracture. Incidental tiny pulmonary calcified granulomatous, old 11th rib fracture, mild lumbar degenerative spondylosis, and minimal double curvature thoracolumbar scoliosis. No other bony, articular, or soft tissue abnormalities.
[2020-02-18] MEDS: VENTOLIN COMMON CANISTER IH SCH (09:15)
[2020-02-18] MEDS ORDERED: NON-FORMULARY ITEM (Budesonide [Budesonide Ec] 3 MG) PO SCH (10:00)
[2020-02-18] MEDS ORDERED: NON-FORMULARY ITEM (Omeprazole [Omeprazole] 20 MG) PO SCH (10:00)
[2020-02-18] MEDS ORDERED: PATIENT OWN MEDICATION PO SCH ×2 (10:00)
[2020-02-18] MEDS ORDERED: MESALAMINE 0.375 GM PO SCH (10:00)
[2020-02-18] MEDS ORDERED: MODAFINIL 200 MG PO SCH (10:00)
[2020-02-18] MEDS ORDERED: VITAMIN D2 PO SCH (10:00)
[2020-02-18] MEDS: SYNTHROID 112 MCG PO SCH (11:50)
[2020-02-18 11:56] VITALS: BP 119/85; PULSE 101; O2SAT 94
[2020-02-18] MEDS: Provigil 100MG Tablet PO SCH (12:07)
[2020-02-18] MEDS: Protonix 40MG Tablet PO SCH (12:08)
--- NOTE | 2020-02-20 10:28 | CONS ---
CONSULT DATE: 02/17/2020 REASON FOR CONSULT: GI bleed. HISTORY: The patient has a known history of colitis and issues and had been followed by Dr. Quispe. His last scope was about two years ago. He is mentally challenged and he is taken care of by his caregiver which is present which I actually personally know and have personally worked on before. He presented with left upper quadrant pain and he is noted to have a fractured rib from a recent fall. CT incidentally showed gallstones. He is fairly young and healthy and should have cholecystectomy but he has acute rib fracture which would compromise anesthesia and compromise his pulmonary toilet. It makes sense to wait or defer this for four to six weeks. He has had bright red blood per rectum and he has not had an exam in two years. It is a little difficult for him to take the prep at home. He is in the hospital currently and can be done tomorrow. Colonoscopy was discussed and he wishes to proceed. IMPRESSION: Lower GI bleed. PLAN: Colonoscopy by Dr. Correa tomorrow morning.
--- NOTE | 2020-02-20 10:50 | OP ---
SURGERY DATE/TIME: 02/18/2020 0715 PREOPERATIVE DIAGNOSIS: History of some left lower quadrant pain, history of rectal bleeding. POSTOPERATIVE DIAGNOSES: 1) No active bleeding. 2) Moderate diverticulosis. 3) Small internal and external hemorrhoids. 4) Fair bowel prep. 5) ASA Class II. 6) Withdrawal time approximately 6 to 9 minutes. 7) Ileocecal valve appendiceal orifice area photo documented. 8) Prep fair. PROCEDURES: 1) Colonoscopy to cecum. 2) Random cold biopsies of left colon to evaluate for microscopic colitis. SURGEON: Dr. Ajit Correa. ANESTHESIA: MAC. ESTIMATED BLOOD LOSS: Minimal. INDICATIONS: As noted above. Risks and benefits explained in detail but not limited to and consent obtained. DESCRIPTION OF PROCEDURE AND FINDINGS: The patient is taken to the operating room. MAC anesthesia introduced. After official time out and no disagreement with planned procedure, digital rectal exam did not reveal any rectal masses. He did have some small internal and external hemorrhoids. Video colonoscope inserted and passed up the tortuous sigmoid, descending, transverse and ascending colon. With external pressure the scope was able to be passed around to the cecum. Appendiceal orifice and valve were photo documented. Prep overall was fair. A little bit of liquidy semisolid stool suction irrigated as clear as possible. With slow careful withdrawal of the scope over the next six to nine minutes. There were no signs of any large polyps, masses or obstructing lesions. There were no signs of any fresh or old blood. No signs of any active bleeding. He did have moderate diverticulosis particularly in the left colon, whether this is contributing to the bleeding in the past is unclear. Otherwise no signs of any obvious large polyps, masses or obstructing lesions. Some random cold biopsies taken in the left colon to evaluate for microscopic colitis. Good hemostasis noted. Otherwise, he had some small internal and external hemorrhoids. The scope was withdrawn. The patient tolerated the procedure well. There was no family available to discuss the findings with out in the waiting area.
== END 2020-02-18 13:05 | disposition home or self-care (01) ==
LOC: ED 22:25 → MED SURG 02-17 04:29
PROVIDERS: ADMIT Family Medicine; ATTEND Family Medicine
DX: K57.30 Diverticulosis of large intestine without perforation or abscess without bleeding (principal); R50.9 Fever, unspecified; S22.32XA Fracture of one rib, left side, initial encounter for closed fracture; R10.9 Unspecified abdominal pain; R07.81 Pleurodynia; K82.8 Other specified diseases of gallbladder; K64.4 Residual hemorrhoidal skin tags; K64.8 Other hemorrhoids; I10 Essential (primary) hypertension; E03.9 Hypothyroidism, unspecified; F70 Mild intellectual disabilities; W19.XXXA Unspecified fall, initial encounter
CPT/HCPCS: 36000; 36415; 45380; 71100; 74177; 76705; 78227; 80053; 81001; 83605; 83690; 84484; 85025; 87040; 93268; 94640; 94760; 94762; 96365; 96368; 96374; 96375; 99285; A9537; G0378; J1956; J2270; J2405; J2704; J2805; A9270-GY

== ENCOUNTER 2021-09-02 11:43 | Emergency (ER) | payer MEDICARE ==
--- NOTE | 2021-09-02 11:46 | ERPHSYRPT ---
- History of Present Illness Time Seen by Provider: 09/02/21 11:46 Source: patient Exam Limitations: no limitations Physician History: This is a 65-year-old white male patient of Dr. Wooten who presents with coughing episodes that have occurred intermittently since he was diagnosed with COVID-19 infection approximately a year ago. In the last several days this coughing has been significant enough where he is causing him some shortness of breath. He does use Ventolin nebulizer treatments but only twice a day. Patient has a history of gastroesophageal reflux disease, hypothyroidism, COPD, elevated cholesterol. Patient has a history of anxiety and depression as well as attention deficit disorder and mild retardation. He is cared for by care provider. Timing/Duration: intermittent, worse Severity of Dyspnea-Max: moderate Severity of Dyspnea-Current: mild (To moderate) Possible Cause: occasional episodes Modifying Factors: Improves With: coughing Associated Symptoms: intermittent, cough, No chest pain/discomfort Allergies/Adverse Reactions: penicillin G Allergy (Intermediate, Verified 09/02/21 12:08) Hiv Home Medications: Albuterol Sulfate [Ventolin Hfa] 18 gm IH QID PRN 02/17/20 [History] Atorvastatin Calcium 20 mg PO HS 02/17/20 [History] Budesonide [Budesonide EC] 3 mg PO QAM 02/17/20 [History] Ergocalciferol (Vitamin D2) [Vitamin D2] 1,250 mcg PO WEEKLY 02/17/20 [History] Levothyroxine Sodium 112 Mcg [Synthroid 112 Mcg] 112 mcg PO DAILY 02/17/20 [History] Mesalamine [Mesalamine ER] 0.375 gm PO QAM 02/17/20 [History] Omeprazole 20 mg PO DAILY 02/17/20 [History] modafiniL [Provigil] 200 mg PO QAM 02/17/20 [History] Hx Tetanus, Diphtheria Vaccination/Date Given: Yes Hx Influenza Vaccination/Date Given: Yes Hx Pneumococcal Vaccination/Date Given: Yes Travel Risk - International Travel Have you traveled outside of the country in past 3 weeks: No - Coronavirus Screening Are you exhibiting any of the following symptoms?: Yes Symptoms: Cough: New Onset, Shortness of Breath Close contact with a COVID-19 positive Pt in past 14-21 Days: No - Review of Systems Constitutional: No Symptoms Eyes: No Symptoms Ears, Nose, & Throat: No Symptoms Respiratory: Cough, Dyspnea Cardiac: No Symptoms Abdominal/Gastrointestinal: No Symptoms Genitourinary Symptoms: No Symptoms Musculoskeletal: No Symptoms Skin: No Symptoms Neurological: No Symptoms Psychological: No Symptoms Endocrine: No Symptoms Hematologic/Lymphatic: No Symptoms Immunological/Allergic: No Symptoms All Other Systems: Reviewed and Negative - Past Medical History Pertinent Past Medical History: Yes Cardiac History: Hypertension Respiratory History: Other Endocrine Medical History: Hypothyroidism GI Medical History: Diverticulitis, GERD, Hernia Psycho-Social History: Anxiety, Attention Deficit Disorder, Depression Other Medical History: MILD RETARDATION. sees dr garcia and uses inhalers- unsure of diagnosis - Past Surgical History Past Surgical History: Yes Gastrointestinal: Hernia Repair - Social History Smoking Status: Never smoker Exposure to second hand smoke: No Drug Use: none Patient Lives Alone: Yes (lives with brother) - Nursing Vital Signs Nursing Vital Signs: Initial Vital Signs Temperature 97.6 F 09/02/21 11:49 Pulse Rate 89 09/02/21 11:49 Respiratory Rate 15 09/02/21 11:49 Blood Pressure 156/111 09/02/21 11:49 O2 Sat by Pulse Oximetry 96 09/02/21 11:49 Pain Scale Pain Intensity 0 - Physical Exam General Appearance: no apparent distress, alert, anxiety Eye Exam: PERRL/EOMI, eyes nml inspection Ears, Nose, Throat Exam: hearing grossly normal, normal ENT inspection, normal pharynx Neck Exam: normal inspection, non-tender, supple, full range of motion Respiratory Exam: normal breath sounds, lungs clear, airway intact, No chest tenderness, No respiratory distress Cardiovascular/Chest Exam: normal heart sounds, regular rate/rhythm, normal peripheral pulses Abdominal/Gastrointestinal Exam: soft, normal bowel sounds, No tenderness Rectal Exam: not done Extremity Exam: non-tender, normal range of motion, normal inspection Neurologic Exam: alert, oriented x 3, cooperative, 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, normal mood/affect, nml cerebellar function, nml station & gait, sensation nml Skin Exam: normal color, warm, dry Lymphatic Exam: No adenopathy SpO2 Interpretation: normal O2 Delivery: Room Air - Course Nursing assessment & vital signs reviewed: Yes Ordered Tests: Active Orders 24 hr Category Date Time Status EKG-ER Only STAT Care 09/02/21 12:20 Active IV Insertion STAT Care 09/02/21 12:20 Active Pulse Oximetry (ED) STAT Care 09/02/21 12:20 Active CHEST 1 VIEW (PORTABLE) Stat Exams 09/02/21 12:21 Completed CBC W DIFF Stat Lab 09/02/21 11:35 Completed CMP Stat Lab 09/02/21 11:35 Completed COVID AG-BINAX NOW RAPID TEST Stat Lab 09/02/21 13:30 Completed D-DIMER QUANTITATIVE Stat Lab 09/02/21 11:35 Completed INFLUENZA A+B GERARDO Stat Lab 09/02/21 12:21 Completed Lactic Acid Stat Lab 09/02/21 12:20 Completed NT PRO BNP Stat Lab 09/02/21 11:35 Completed PROTIME WITH INR Stat Lab 09/02/21 11:35 Completed TROPONIN Q3H Lab 09/02/21 11:35 Completed TROPONIN Q3H Lab 09/02/21 15:30 Ordered TROPONIN Q3H Lab 09/02/21 18:30 Ordered TROPONIN Q3H Lab 09/02/21 21:30 Ordered TROPONIN Q3H Lab 09/03/21 00:30 Ordered Medication Summary Discontinued Medications Generic Name Dose Route Start Last Admin Trade Name Freq PRN Reason Stop Dose Admin Hydrocodone Bitart/Acetaminophen 10 ml 09/02/21 12:37 09/02/21 12:44 Hydrocodone/Acetaminophen 5 Ml Udcup PO 09/02/21 12:38 10 ml STAT STA Administration Hydrocodone Bitart/Acetaminophen Confirm 09/02/21 12:43 Hydrocodone/Acetaminophen 5 Ml Udcup Administered 09/02/21 12:44 Dose 10 ml .ROUTE .STK-MED ONE Methylprednisolone Sodium 0 mg 09/02/21 12:20 09/02/21 12:25 Succinate 125 mg/ Sterile IV 09/02/21 12:21 125 mg Water 2 ml STAT ONE Administration Methylprednisolone Sodium Succinate Confirm 09/02/21 12:24 Methylprednis Sod Succ 125 Mg/2 Ml Vial Administered 09/02/21 12:25 Dose 125 mg .ROUTE .STK-MED ONE Sterile Water Confirm 09/02/21 12:24 Water For Injection,Sterile 10 Ml Vial Administered 09/02/21 12:25 Dose 10 ml IJ .STK-MED ONE Lab/Rad Data: Laboratory Result Diagrams 09/02/21 11:35 09/02/21 11:35 Laboratory Results 0209/02/21 09/02/21 Range/Units 13:30 12:21 12:20 WBC (4.0-10.5) K/mm3 RBC (4.1-5.6) M/mm3 Hgb (12.5-18.0) gm/dl Hct (42-50) % MCV (78-100) fl MCH (26-32) pg MCHC (32-36) g/dl RDW (11.5-14.0) % Plt Count (150-450) K/mm3 MPV (7.5-11.0) fl Gran % (36.0-66.0) % Eos # (Auto) (0-0.5) Absolute Lymphs (auto) (1.0-4.6) Absolute Monos (auto) (0.0-1.3) Lymphocytes % (24.0-44.0) % Monocytes % (0.0-12.0) % Eosinophils % (0.00-5.0) % Basophils % (0.0-0.4) % Absolute Granulocytes (1.4-6.9) Basophils # (0-0.4) PT (9.4-12.5) SECONDS INR (0.8-3.0) D-Dimer (215-500) ng/mL Sodium (137-145) mmol/L Potassium (3.5-5.1) mmol/L Chloride (98-107) mmol/L Carbon Dioxide (22-30) mmol/L Anion Gap (5-15) MEQ/L BUN (9-20) mg/dL Creatinine (0.66-1.25) mg/dL Estimated GFR ML/MIN Glucose (74-106) mg/dL Lactic Acid 1.6 (0.4-2.0) Calcium (8.4-10.2) mg/dL Total Bilirubin (0.2-1.3) mg/dL AST (17-59) U/L ALT (0-50) U/L Alkaline Phosphatase (38-126) U/L Troponin I (0.000-0.034) ng/mL NT-Pro-B Natriuret Pep (0-900) pg/mL Serum Total Protein (6.3-8.2) g/dL Albumin (3.5-5.0) g/dL Influenza Type A Ag NEGATIVE (NEGATIVE) Influenza Type B Ag NEGATIVE (NEGATIVE) SARS-CoV-2 Ag (Rapid) NEGATIVE (NEGATIVE) 09/02/21 09/02/21 09/02/21 Range/Units 11:35 11:35 11:35 WBC (4.0-10.5) K/mm3 RBC (4.1-5.6) M/mm3 Hgb (12.5-18.0) gm/dl Hct (42-50) % MCV (78-100) fl MCH (26-32) pg MCHC (32-36) g/dl RDW (11.5-14.0) % Plt Count (150-450) K/mm3 MPV (7.5-11.0) fl Gran % (36.0-66.0) % Eos # (Auto) (0-0.5) Absolute Lymphs (auto) (1.0-4.6) Absolute Monos (auto) (0.0-1.3) Lymphocytes % (24.0-44.0) % Monocytes % (0.0-12.0) % Eosinophils % (0.00-5.0) % Basophils % (0.0-0.4) % Absolute Granulocytes (1.4-6.9) Basophils # (0-0.4) PT 12.4 (9.4-12.5) SECONDS INR 1.05 (0.8-3.0) D-Dimer < 215 L (215-500) ng/mL Sodium 125 L (137-145) mmol/L Potassium 3.5 (3.5-5.1) mmol/L Chloride 88 L (98-107) mmol/L Carbon Dioxide 31 H (22-30) mmol/L Anion Gap 9.3 (5-15) MEQ/L BUN 7 L (9-20) mg/dL Creatinine 0.58 L (0.66-1.25) mg/dL Estimated GFR > 60.0 ML/MIN Glucose 96 (74-106) mg/dL Lactic Acid (0.4-2.0) Calcium 8.9 (8.4-10.2) mg/dL Total Bilirubin 0.70 (0.2-1.3) mg/dL AST 22 (17-59) U/L ALT 19 (0-50) U/L Alkaline Phosphatase 124 (38-126) U/L Troponin I < 0.012 (0.000-0.034) ng/mL NT-Pro-B Natriuret Pep 63.3 (0-900) pg/mL Serum Total Protein 7.4 (6.3-8.2) g/dL Albumin 4.4 (3.5-5.0) g/dL Influenza Type A Ag (NEGATIVE) Influenza Type B Ag (NEGATIVE) SARS-CoV-2 Ag (Rapid) (NEGATIVE) 09/02/21 Range/Units 11:35 WBC 7.7 (4.0-10.5) K/mm3 RBC 4.41 (4.1-5.6) M/mm3 Hgb 13.6 (12.5-18.0) gm/dl Hct 38.9 L (42-50) % MCV 88.2 (78-100) fl MCH 30.8 (26-32) pg MCHC 35.0 (32-36) g/dl RDW 14.2 H (11.5-14.0) % Plt Count 400 (150-450) K/mm3 MPV 9.6 (7.5-11.0) fl Gran % 53.9 (36.0-66.0) % Eos # (Auto) 0.86 H (0-0.5) Absolute Lymphs (auto) 1.59 (1.0-4.6) Absolute Monos (auto) 1.00 (0.0-1.3) Lymphocytes % 20.7 L (24.0-44.0) % Monocytes % 13.0 H (0.0-12.0) % Eosinophils % 11.2 H (0.00-5.0) % Basophils % 1.2 (0.0-0.4) % Absolute Granulocytes 4.14 (1.4-6.9) Basophils # 0.09 (0-0.4) PT (9.4-12.5) SECONDS INR (0.8-3.0) D-Dimer (215-500) ng/mL Sodium (137-145) mmol/L Potassium (3.5-5.1) mmol/L Chloride (98-107) mmol/L Carbon Dioxide (22-30) mmol/L Anion Gap (5-15) MEQ/L BUN (9-20) mg/dL Creatinine (0.66-1.25) mg/dL Estimated GFR ML/MIN Glucose (74-106) mg/dL Lactic Acid (0.4-2.0) Calcium (8.4-10.2) mg/dL Total Bilirubin (0.2-1.3) mg/dL AST (17-59) U/L ALT (0-50) U/L Alkaline Phosphatase (38-126) U/L Troponin I (0.000-0.034) ng/mL NT-Pro-B Natriuret Pep (0-900) pg/mL Serum Total Protein (6.3-8.2) g/dL Albumin (3.5-5.0) g/dL Influenza Type A Ag (NEGATIVE) Influenza Type B Ag (NEGATIVE) SARS-CoV-2 Ag (Rapid) (NEGATIVE) - Progress Progress: improved, re-examined Air Movement: good Progress Note: 09/02/21 14:05 Chest x-ray shows no acute cardiopulmonary process. Blood Culture(s) Obtained: Yes Counseled pt/family regarding: lab results, diagnosis, need for follow-up, rad results - Departure Departure Disposition: Home Clinical Impression: Bronchitis Condition: Stable Critical Care Time: No Referrals: AARON WOOTEN MD [Primary Care Provider] - Follow up/PCP as directed Additional Instructions: Drink plenty of fluids. Take your medication as prescribed. Follow-up with your primary prescriber for further management. Prescriptions: Hydrocodone/Acetaminophen [Hydrocodone-Acetamn 7.5-325/15] 10 ml PO Q8H PRN PRN #120 ml MDD 30 mL PRN Reason: Cough Prednisone 10 mg [Deltasone 10 mg] 10 mg PO TID #12 tablet Azithromycin 250 mg [Zithromax 250 MG TABLET] 250 mg PO ZPACK #6 tablet
[2021-09-02] MEDS ORDERED: solu-MEDROL 125 MG, Sterile H2O 10 ml 2 ML IV ONE ×2 (12:20)
[2021-09-02] MEDS ORDERED: Sterile H2O 10 ml IJ ONE (12:24)
[2021-09-02] MEDS ORDERED: solu-MEDROL ONE (12:24)
[2021-09-02] MEDS ORDERED: HYDROCODONE-ACETAMIN 2.5-108/5 ML SOLUTION PO STA (12:37)
[2021-09-02] MEDS ORDERED: HYDROCODONE-ACETAMIN 2.5-108/5 ML SOLUTION ONE (12:43)
--- NOTE | 2021-09-02 12:45 | XRAY ---
Indication: Cough. Comparison: None Portable chest hyperinflated and clear with incidental tiny calcified granulomas. Heart not enlarged. Descending aorta is tortuous. Bony thorax intact with osteopenia and mild double curvature scoliosis. Impression: Nonacute hyperinflated chest with chronic features.
[2021-09-02 13:06] LABS: Absolute Neutrophil Ct (ANC) 4.14 (1.4-6.9); Basophil (Absolute #) 0.09 (0-0.4); Eosinophil % 11.2 % (0.00-5.0); Eosinophil (Absolute #) 0.86 (0-0.5); Hematocrit 38.9 % (42-50); Hemoglobin 13.6 gm/dl (12.5-18.0); Lymphocyte (Absolute #) 1.59 (1.0-4.6); Lymphocytes % 20.7 % (24.0-44.0); Mean Cell Volume 88.2 fl (78-100); Mean Corpuscular Hemoglobin 30.8 pg (26-32); Mean Platelet Volume 9.6 fl (7.5-11.0); Neutrophil % 53.9 % (36.0-66.0); Platelet Count 400 K/mm3 (150-450); Red Blood Count 4.41 M/mm3 (4.1-5.6); Red Cell Distribution Width 14.2 % (11.5-14.0); White Blood Count 7.7 K/mm3 (4.0-10.5)
[2021-09-02 13:22] LABS: INFLUENZA A NEGATIVE (NEGATIVE); INFLUENZA B NEGATIVE (NEGATIVE)
[2021-09-02 13:37] LABS: INR 1.05 (0.8-3.0); PROTIME 12.4 SECONDS (9.4-12.5)
[2021-09-02 14:00] LABS: ALBUMIN 4.4 g/dL (3.5-5.0); ALKALINE PHOSPHATASE 124 U/L (38-126); ANION GAP 9.3 MEQ/L (5-15); BLOOD UREA NITROGEN 7 mg/dL (9-20); CHLORIDE 88 mmol/L (98-107); Calcium 8.9 mg/dL (8.4-10.2); Carbon Dioxide 31 mmol/L (22-30); Creatinine 1 0.58 mg/dL (0.66-1.25); EST GLOMERULAR FILTRATION RATE > 60.0 ML/MIN; Glucose 96 mg/dL (74-106); NT PRO BNP 63.3 pg/mL (0-900); Potassium 3.5 mmol/L (3.5-5.1); SGOT/AST 22 U/L (17-59); SGPT/ALT 19 U/L (0-50); SODIUM 125 mmol/L (137-145); Total Protein 7.4 g/dL (6.3-8.2)
[2021-09-02 14:23] LABS: D-DIMER QUANTITATIVE < 215 ng/mL (215-500)
[2021-09-02 14:26] LABS: COVID AG -BINAX NOW RAPID TEST NEGATIVE (NEGATIVE)
[2021-09-02 15:05] VITALS: BP 181/107; PULSE 84; O2SAT 96
== END 2021-09-02 15:12 | disposition home or self-care (01) ==
LOC: ED 11:43
DX: J20.9 Acute bronchitis, unspecified (principal); K21.9 Gastro-esophageal reflux disease without esophagitis; J44.0 Chronic obstructive pulmonary disease with (acute) lower respiratory infection; E78.5 Hyperlipidemia, unspecified; Z86.16 Personal history of COVID-19; F70 Mild intellectual disabilities; I10 Essential (primary) hypertension; Z79.891 Long term (current) use of opiate analgesic; Z79.52 Long term (current) use of systemic steroids; Z79.899 Other long term (current) drug therapy
CPT/HCPCS: 36000; 36415; 71045; 80053; 83605; 83880; 84484; 85025; 85379; 85610; 87400; 93005; 94760; 96374; 99000; 99284; J2930; A9270-GY

== ENCOUNTER 2021-12-04 21:41 | Emergency (ER) | payer MEDICARE ==
--- NOTE | 2021-12-04 21:51 | ERPHSYRPT ---
- History of Present Illness Time Seen by Provider: 12/04/21 21:50 Source: patient, family Exam Limitations: no limitations Physician History: This is a 66-year-old white male patient of Dr. Shen who was walking home and for some unknown reason tripped fell hitting his right shoulder and right side of his face. He did not lose consciousness. He had some right periorbital area abrasions, a single small laceration and bruising and swelling present. He also has an abrasion and tenderness of his right shoulder. Patient has a history of hypertension, elevated cholesterol, hypothyroidism, anxiety issues, mild mental retardation and gastroesophageal reflux disease. His tetanus status is not up-to-date. Timing/Duration: today Severity: mild Modifying Factors: Improves With: movement Associated Symptoms: denies symptoms Allergies/Adverse Reactions: penicillin G Allergy (Intermediate, Verified 12/04/21 21:49) Hives Home Medications: Albuterol Sulfate [Ventolin Hfa] 18 gm IH QID PRN 02/17/20 [History] Atorvastatin Calcium 20 mg PO HS 02/17/20 [History] Budesonide [Budesonide EC] 3 mg PO QAM 02/17/20 [History] Ergocalciferol (Vitamin D2) [Vitamin D2] 1,250 mcg PO WEEKLY 02/17/20 [History] Levothyroxine Sodium 112 Mcg [Synthroid 112 Mcg] 112 mcg PO DAILY 02/17/20 [History] Mesalamine [Mesalamine ER] 0.375 gm PO QAM 02/17/20 [History] Omeprazole 20 mg PO DAILY 02/17/20 [History] modafiniL [Provigil] 200 mg PO QAM 02/17/20 [History] Hx Tetanus, Diphtheria Vaccination/Date Given: Yes Hx Influenza Vaccination/Date Given: Yes Hx Pneumococcal Vaccination/Date Given: Yes Travel Risk - International Travel Have you traveled outside of the country in past 3 weeks: No - Coronavirus Screening Are you exhibiting any of the following symptoms?: No Close contact with a COVID-19 positive Pt in past 14-21 Days: No - Vaccine Status Have you recieved a Covid-19 vaccination: 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[employer] - Vaccination Dates Date of 2cond Vaccination (if applicable): unknown - Review of Systems Constitutional: No Symptoms Eyes: No Symptoms, Other (Right periorbital swelling and ecchymosis present.), No Vision Changes Ears, Nose, & Throat: No Symptoms Respiratory: No Symptoms Cardiac: No Symptoms Abdominal/Gastrointestinal: No Symptoms Genitourinary Symptoms: No Symptoms Musculoskeletal: Fall, Injury (Right shoulder) Skin: Other (Right periorbital and forehead abrasions) Neurological: No Symptoms Psychological: No Symptoms Endocrine: No Symptoms Hematologic/Lymphatic: No Symptoms Immunological/Allergic: No Symptoms All Other Systems: Reviewed and Negative - Past Medical History Pertinent Past Medical History: Yes Cardiac History: Hypertension Respiratory History: Other Endocrine Medical History: Hypothyroidism GI Medical History: Diverticulitis, GERD, Hernia Psycho-Social History: Anxiety, Attention Deficit Disorder, Depression Other Medical History: MILD RETARDATION. sees dr garcia and uses inhalers- unsure of diagnosis - Past Surgical History Past Surgical History: Yes Gastrointestinal: Hernia Repair - Social History Smoking Status: Never smoker Exposure to second hand smoke: No Drug Use: none Patient Lives Alone: Yes (lives with brother) - Nursing Vital Signs Nursing Vital Signs: Initial Vital Signs Temperature 98.4 F 12/04/21 21:50 Pulse Rate 90 12/04/21 21:50 Respiratory Rate 18 12/04/21 21:50 Blood Pressure 173/109 12/04/21 21:50 O2 Sat by Pulse Oximetry 98 12/04/21 21:50 Pain Scale Pain Intensity 5 - Physical Exam General Appearance: no apparent distress, alert, anxiety Eye Exam: PERRL/EOMI, eyes nml inspection, other (Right lower forehead above right eyebrow swelling with a 1 cm superficial laceration and multiple associated abrasions. 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, normal mood/affect, nml cerebellar function, nml station & gait, sensation nml Skin Exam: abrasion (See above), laceration (See above see above) Lymphatic Exam: No adenopathy SpO2 Interpretation: normal O2 Delivery: Room Air - Course Nursing assessment & vital signs reviewed: Yes Ordered Tests: Active Orders 24 hr Category Date Time Status Wound Care STAT Care 12/04/21 23:12 Active CERVICAL SPINE WO CONTRAST [CT] Stat Exams 12/04/21 22:02 Taken FACIAL BONES WO CONTRAST [CT] Stat Exams 12/04/21 22:02 Taken HEAD WITHOUT CONTRAST [CT] Stat Exams 12/04/21 22:02 Taken SHOULDER Stat Exams 12/04/21 22:03 Taken Medication Summary Discontinued Medications Generic Name Dose Route Start Last Admin Trade Name Freq PRN Reason Stop Dose Admin Bacitracin Zinc 0.9 each 12/04/21 23:12 12/04/21 23:13 Bacitracin Packet 1 Each Pckt TP 12/04/21 23:13 0.9 each STAT ONE Administration Bacitracin Zinc Confirm 12/04/21 23:12 Bacitracin Packet 1 Each Pckt Administered 12/04/21 23:13 Dose 1 each .ROUTE .STK-MED ONE Ciprofloxacin 500 mg 12/04/21 23:13 12/04/21 23:16 Ciprofloxacin 500 Mg Tablet PO 12/04/21 23:14 500 mg STAT ONE Administration Ciprofloxacin Confirm 12/04/21 23:16 Ciprofloxacin 500 Mg Tablet Administered 12/04/21 23:17 Dose 500 mg .ROUTE .STK-MED ONE Diphtheria/Tetanus/Acell Pertussis 0.5 ml 12/04/21 22:03 12/04/21 22:43 Tdap --Diph,Pertuss(Acell),Tet Vac/Pf 0.5 Ml Vial IM 12/04/21 22:04 0.5 ml .ONCE ONE Administration Diphtheria/Tetanus/Acell Pertussis Confirm 12/04/21 22:41 Tdap --Diph,Pertuss(Acell),Tet Vac/Pf 0.5 Ml Vial Administered 12/04/21 22:42 Dose 0.5 ml IM .STK-MED ONE Lidocaine HCl 5 ml 12/04/21 22:52 12/04/21 22:52 Lidocaine Hcl 1% 20 Ml Mdv 20 Ml Ml IJ 12/04/21 22:53 5 ml STAT ONE Administration Lidocaine HCl Confirm 12/04/21 22:51 Lidocaine Hcl 1% 20 Ml Mdv 20 Ml Ml Administered 12/04/21 22:52 Dose 5 ml .ROUTE .[place]-MED ONE - Progress Progress Note: 12/04/21 22:46 X-ray of right shoulder reveals no acute fracture or dislocation. 12/04/21 23:18 CT scan of head without contrast shows no acute intracranial abnormality. 12/04/21 23:21 CT scan of the face without contrast shows no acute fractures and no acute dislocations. CT scan of the cervical spine without contrast shows no acute fractures or subluxation. Counseled pt/family regarding: diagnosis, need for follow-up, rad results - Departure Departure Disposition: Home Clinical Impression: Facial laceration, Contusion of right shoulder Condition: Stable Critical Care Time: No Referrals: KELLY SHEN [Primary Care Provider] - Follow up/PCP as directed Additional Instructions: Keep all abrasion sites clean daily with soap and water. Apply thin layer of antibiotic ointment of choice to laceration repair site and abrasion sites daily. Removal of sutures in 5 to 7 days. Use Tylenol and ibuprofen for pain control. Take medication as prescribed. Ice pack to right eye area 3 times a day for the next 48 hours. Expect persistent bruising over the next 1 to 2 weeks in the periorbital area Prescriptions: Ciprofloxacin [Cipro 500 MG] 500 mg PO BID #10 tablet
[2021-12-04] MEDS ORDERED: Adacel Vial IM ONE ×2 (22:03→22:41)
[2021-12-04] MEDS ORDERED: XYLOCAINE 1% HCL 20 ML MDV ONE (22:51)
[2021-12-04] MEDS ORDERED: XYLOCAINE 1% HCL 20 ML MDV IJ ONE (22:52)
[2021-12-04] MEDS ORDERED: BACIGUENT PACKET TP ONE (23:12)
[2021-12-04] MEDS ORDERED: BACIGUENT PACKET ONE (23:12)
[2021-12-04] MEDS ORDERED: Cipro 500 MG PO ONE (23:13)
[2021-12-04] MEDS ORDERED: Cipro 500 MG ONE (23:16)
[2021-12-04 23:42] VITALS: BP 152/94; PULSE 78; O2SAT 99
--- NOTE | 2021-12-05 08:51 | XRAY ---
Indication: Right periorbital pain and swelling following fall. Multiple contiguous axial images obtained through the head without contrast. Comparison: None Age-appropriate global atrophy and minimal periventricular degenerative micro-ischemia bilaterally. External capsule demonstrates small remote infarcts bilaterally. No acute intracranial hemorrhage, abnormal extra-axial fluid collection, or mass effect. Fourth ventricle is midline without hydrocephalus. Polo-white matter differentiation is preserved. Mild supraorbital soft tissue swelling/hematoma. Bony calvarium intact. Mild mucosal thickening both ethmoid sinuses. Remaining visualized paranasal sinuses and mastoid air cells are clear. Impression: 1. Right supraorbital soft tissue swelling/hematoma. No underlying fracture or acute intracranial abnormalities. 2. Atrophy and degenerative micro-ischemia within normal limits for patient's age. Small bilateral external capsule remote infarcts. 3. Minimal paranasal sinus disease. Comment: Preliminary interpretation made by [facility]. No critical discrepancy.
--- NOTE | 2021-12-05 08:59 | XRAY ---
Indication: Right periorbital pain and swelling following fall. Multiple contiguous axial images obtained through the facial bones. Sagittal and coronal reformatted images obtained. Comparison: None Multiple bilateral dental amalgams produces beam artifact. Moderate right supraorbital soft tissue swelling with subcutaneous punctate foreign body. No acute fracture, suspicious bony lesions, or radiopaque foreign body. Orbits including roof, enamorado, and floors are intact. Mild left and minimal right ethmoid sinus mucosal thickening. Remaining paranasal sinuses and nasal passages are clear. Minimal nasal septal deviation to the left. Motion artifact limits evaluation of the TMJ. Query anterior subluxed mandible condyles bilaterally. Visualized cervical spine intact with incidental moderate C3-C4 degenerative changes and anatomic variant for ununited posterior arch C1. Visualized noncontrasted soft tissues unremarkable. CT head and CT cervical spine reported separately. Impression: 1. Right periorbital soft tissue swelling with punctate foreign body. Negative acute facial bone fracture. 2. Query anterior subluxed mandible condyles versus motion artifact. 3. Incidental nasal septal deviation, minimal paranasal sinus disease, and C3-C4 degenerative changes. Comment: Preliminary interpretation made by [facility] who does not report incidental TMJ findings.
--- NOTE | 2021-12-05 09:05 | XRAY ---
Indication: Neck pain following fall. Multiple contiguous axial images obtained through the cervical spine. Sagittal and coronal reformatted images obtained. Comparison: None Osseous structures demineralized consistent with patient's age. Axial images demonstrates anatomic variant for nonunited posterior arch C1. Otherwise no acute fracture, suspicious bony lesions, or spinal canal stenosis. There is minimal/mild C3-C7 degenerative disc osteophyte complex and mild multilevel degenerative facet arthropathy right greater than left. Sagittal and coronal reformatted images demonstrates mid-upper cervical lordotic straightening, positional versus paraspinal spasm. C3-C4 and C5-C6 degenerative disc space narrowing. Remote appearing T1 superior endplate fracture with less than 25% height loss. No acute compression fracture, subluxation, or jumped facet. Normal-appearing craniocervical junction. Visualized noncontrasted soft tissues demonstrates minimal right carotid calcifications and minimal biapical pulmonary fibrosis/scarring. Impression: 1. Cervical lordotic straightening, positional versus paraspinal spasm. 2. Negative acute fracture/subluxation. 3. Osteopenia, multilevel degenerative changes, remote T1 endplate fracture, and normal variant nonunited posterior arch C1. Comment: Preliminary interpretation made by [facility] who does not report incidental C1 and T1 findings.
--- NOTE | 2021-12-05 09:05 | XRAY ---
Indication: Pain following fall. Comparison: None 3 view right shoulder demonstrates mild osteopenia, mild AC degenerative arthropathy, and a few tiny right upper lobe calcified granulomas. No other bony, articular, or soft tissue abnormalities.
== END 2021-12-04 23:42 | disposition home or self-care (01) ==
LOC: ED 21:41
DX: S01.81XA Laceration without foreign body of other part of head, initial encounter (principal); S40.011A Contusion of right shoulder, initial encounter; W01.0XXA Fall on same level from slipping, tripping and stumbling without subsequent striking against object, initial encounter; Y93.01 Activity, walking, marching and hiking; I10 Essential (primary) hypertension; E78.5 Hyperlipidemia, unspecified; Z79.899 Other long term (current) drug therapy
CPT/HCPCS: 70450; 70486; 72125; 73030; 90471; 90715; 96372; 99284; A9270-GY

== ENCOUNTER 2022-01-01 18:05 | Emergency (ER) | payer MEDICARE ==
--- NOTE | 2022-01-01 18:22 | ERPHSYRPT ---
- History of Present Illness Time Seen by Provider: 01/01/22 18:21 Historian: patient Allergies/Adverse Reactions: penicillin G Allergy (Intermediate, Verified 12/04/21 21:49) Hives Home Medications: Albuterol Sulfate [Ventolin Hfa] 18 gm IH QID PRN 02/17/20 [History] Atorvastatin Calcium 20 mg PO HS 02/17/20 [History] Budesonide [Budesonide EC] 3 mg PO QAM 02/17/20 [History] Ergocalciferol (Vitamin D2) [Vitamin D2] 1,250 mcg PO WEEKLY 02/17/20 [History] Levothyroxine Sodium 112 Mcg [Synthroid 112 Mcg] 112 mcg PO DAILY 02/17/20 [History] Mesalamine [Mesalamine ER] 0.375 gm PO QAM 02/17/20 [History] Omeprazole 20 mg PO DAILY 02/17/20 [History] modafiniL [Provigil] 200 mg PO QAM 02/17/20 [History] Hx Tetanus, Diphtheria Vaccination/Date Given: Yes Hx Influenza Vaccination/Date Given: Yes Hx Pneumococcal Vaccination/Date Given: Yes Travel Risk - Vaccine Status Have you recieved a Covid-19 vaccination: Yes 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 sees dr garcia and uses inhalers- unsure of diagnosis - Past Surgical History Past Surgical History: Yes Gastrointestinal: Hernia Repair - Social History Smoking Status: Never smoker Exposure to second hand smoke: No Drug Use: none Patient Lives Alone: Yes (lives with brother) - Departure Referrals: KELLY MCINTOSH [Primary Care Provider] - Follow up/PCP as directed
== END 2022-01-01 19:25 | disposition left against medical advice (07) ==
LOC: ED 18:05
DX: Z53.21 Procedure and treatment not carried out due to patient leaving prior to being seen by health care provider (principal)

== ENCOUNTER 2023-03-07 11:53 | Emergency (ER) | payer MEDICARE ==
--- NOTE | 2023-03-07 12:01 | ERPHSYRPT ---
- History of Present Illness Time Seen by Provider: 03/07/23 12:01 Historian: patient Exam Limitations: no limitations Physician History: This is a 67-year-old white male who presents with left lateral chest pain that began this morning. Patient's primary care physician is Dr. Shen. Patient is not short of breath. He does not have a cough. He does not have a fever. Patient does have a mental disability. He is brought in to the emergency department by his [id number]. Patient's sister told the patient to take aspirin prior to arrival. The patient took 2 full baby aspirin prior to arrival. Patient has history of hypothyroidism, COPD, hyperlipidemia, gastroesophageal reflux disease, ADD, inflammatory bowel disease and hypertension. Timing/Duration: today Activities at Onset: none Quality: aching Location: other (Left lateral chest) Chest Pain Radiation: no radiation Severity of Pain-Max: moderate Severity of Pain-Current: mild (To moderate) Modifying Factors: Improves With: palpation Associated Symptoms: denies symptoms Prior Chest Pain/Cardiac Workup: no prior chest pain Nitro Today/Relief: no nitro taken today Aspirin Treatment Today: provided at home (To full baby aspirin) Allergies/Adverse Reactions: penicillin G Allergy (Intermediate, Verified 03/07/23 12:12) Hives Home Medications: Albuterol Sulfate [Ventolin Hfa] 18 gm IH QID PRN 02/17/20 [History] Atorvastatin Calcium 20 mg PO HS 02/17/20 [History] Budesonide [Budesonide EC] 3 mg PO QAM 02/17/20 [History] Ergocalciferol (Vitamin D2) [Vitamin D2] 1,250 mcg PO WEEKLY 02/17/20 [History] Mesalamine [Mesalamine ER] 0.375 gm PO QAM 02/17/20 [History] Omeprazole 20 mg PO DAILY 02/17/20 [History] modafiniL [Provigil] 200 mg PO QAM 02/17/20 [History] Famotidine 40 mg PO DAILY 03/07/23 [History] Fluticasone/Umeclidin/Vilanter [Trelegy Ellipta 200-62.5-25] 1 puff PO DAILY 03/07/23 [History] Levothyroxine Sodium [Synthroid] 125 mcg PO DAILY 03/07/23 [History] Hx Tetanus, Diphtheria Vaccination/Date Given: Yes Hx Influenza Vaccination/Date Given: Yes Hx Pneumococcal Vaccination/Date Given: Yes Travel Risk - International Travel Have you traveled outside of the country in past 3 weeks: No - Coronavirus Screening Are you exhibiting any of the following symptoms?: No Close contact with a COVID-19 positive Pt in past 14-21 Days: No - Vaccine Status Have you recieved a Covid-19 vaccination: Yes 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[employer] - Vaccination Dates Date of 2cond Vaccination (if applicable): unknown - Review of Systems Constitutional: No Symptoms Eyes: No Symptoms Ears, Nose, & Throat: No Symptoms Respiratory: No Symptoms Cardiac: Chest Pain Abdominal/Gastrointestinal: No Symptoms (Left lateral) Genitourinary Symptoms: No Symptoms Musculoskeletal: No Symptoms Skin: No Symptoms Neurological: No Symptoms Psychological: No Symptoms Endocrine: No Symptoms Hematologic/Lymphatic: No Symptoms Immunological/Allergic: No Symptoms All Other Systems: Reviewed and Negative - Past Medical History Pertinent Past Medical History: Yes Cardiac History: Hypertension Respiratory History: Other Endocrine Medical History: Hypothyroidism GI Medical History: Diverticulitis, GERD, Hernia Psycho-Social History: Anxiety, Attention Deficit Disorder, Depression Other Medical History: MILD RETARDATION. sees dr garcia and uses inhalers- unsure of diagnosis - Past Surgical History Past Surgical History: Yes Gastrointestinal: Hernia Repair - Social History Smoking Status: Never smoker Exposure to second hand smoke: No Drug Use: none Patient Lives Alone: Yes (lives with brother) - Nursing Vital Signs Nursing Vital Signs: Initial Vital Signs Temperature 98.4 F 03/07/23 12:00 Pulse Rate 90 03/07/23 12:00 Respiratory Rate 18 03/07/23 12:00 Blood Pressure 158/89 03/07/23 12:00 O2 Sat by Pulse Oximetry 98 03/07/23 12:00 Pain Scale Pain Intensity 10 - Physical Exam General Appearance: no apparent distress, alert, anxiety Eye Exam: PERRL/EOMI Ears, Nose, Throat Exam: normal ENT inspection Neck Exam: normal inspection, non-tender, supple, full range of motion Respiratory Exam: normal breath sounds, chest tenderness (Left lateral chest wall tenderness), lungs clear, airway intact, No respiratory distress Cardiovascular Exam: regular rate/rhythm, normal heart sounds, normal peripheral pulses Gastrointestinal/Abdomen Exam: soft, normal bowel sounds, No tenderness Rectal Exam: not done Back Exam: normal inspection, normal range of motion, No CVA tenderness, No vertebral tenderness Extremity Exam: normal inspection, normal range of motion, pelvis stable Neurologic Exam: alert, oriented x 3, cooperative, research associate 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 nml as tested, nml cerebellar function, nml station & gait, sensation nml Skin Exam: normal color, warm, dry Lymphatic Exam: No adenopathy SpO2 Interpretation: normal O2 Delivery: Room Air - Course Nursing assessment & vital signs reviewed: Yes EKG Interpreted by Me: RATE (87), Sinus Rhythm, NORMAL AXIS, NORMAL INTERVALS, Right Bundle Branch Block, NORMAL ST-T, Other (No acute ischemic changes on today's twelve-lead EKG) Ordered Tests: Active Orders 24 hr Category Date Time Status Signal Tower Operator STAT Care 03/07/23 12:16 Active EKG-ER Only STAT Care 03/07/23 12:15 Active IV Insertion STAT Care 03/07/23 12:15 Active Pulse Oximetry (ED) STAT Care 03/07/23 12:15 Active CHEST 1 VIEW (PORTABLE) Stat Exams 03/07/23 12:16 Completed CBC W DIFF Stat Lab 03/07/23 12:47 Completed CMP Stat Lab 03/07/23 12:47 Completed D-DIMER QUANTITATIVE Stat Lab 03/07/23 12:47 Completed PROTIME WITH INR Stat Lab 03/07/23 12:47 Completed TROPONIN Q4H Lab 03/07/23 12:47 Completed TROPONIN Q4H Lab 03/07/23 16:15 Ordered TROPONIN Q4H Lab 03/07/23 20:15 Ordered Lab/Rad Data: Laboratory Result Diagrams 03/07/23 12:47 03/07/23 12:47 Laboratory Results 03/07/23 03/07/23 03/07/23 Range/Units 12:47 12:47 12:47 WBC 11.2 H (4.0-10.5) x10^3/uL RBC 4.56 (4.1-5.6) x10^6/uL Hgb 12.7 (12.5-18.0) g/dL Hct 39.6 L (42-50) % MCV 86.8 (78-100) fL MCH 27.9 (26-32) pg MCHC 32.1 (32-36) g/dL RDW 14.2 H (11.5-14.0) % Plt Count 325 (150-450) x10^3/uL MPV 9.6 (7.5-11.0) fL Gran % 78.6 H (36.0-66.0) % Immature Gran % (Auto) 0.4 (0.00-0.4) % Nucleat RBC Rel Count 0.0 (0.00-0.1) % Eos # (Auto) 0.14 (0-0.5) x10^3/uL Immature Gran # (Auto) 0.04 H (0.00-0.03) x10^3u/L Absolute Lymphs (auto) 1.30 (1.0-4.6) x10^3/uL Absolute Monos (auto) 0.85 (0.0-1.3) x10^3/uL Absolute Nucleated RBC 0.00 (0.00-0.01) x10^3u/L Lymphocytes % 11.6 L (24.0-44.0) % Monocytes % 7.6 (0.0-12.0) % Eosinophils % 1.3 (0.00-5.0) % Basophils % 0.5 (0.0-0.4) % Absolute Granulocytes 8.80 H (1.4-6.9) x10^3/uL Basophils # 0.06 (0-0.4) x10^3/uL PT 10.3 (9.4-12.5) SECONDS INR 0.94 (0.8-3.0) D-Dimer 0.21 (0.0-0.50) mg/L Sodium 132 L (137-145) mmol/L Potassium 3.7 (3.5-5.1) mmol/L Chloride 95 L (98-107) mmol/L Carbon Dioxide 27 (22-30) mmol/L Anion Gap 13.4 (5-15) MEQ/L BUN 6 L (9-20) mg/dL Creatinine 0.57 L (0.66-1.25) mg/dL Estimated GFR > 60.0 ML/MIN Glucose 98 (74-106) mg/dL Calcium 8.9 (8.4-10.2) mg/dL Total Bilirubin 0.30 (0.2-1.3) mg/dL AST 18 (17-59) U/L ALT 19 (0-50) U/L Alkaline Phosphatase 132 H (38-126) U/L Troponin I < 0.012 (0.000-0.034) ng/mL Serum Total Protein 7.6 (6.3-8.2) g/dL Albumin 4.3 (3.5-5.0) g/dL - Progress Progress: improved, re-examined Air Movement: good Progress Note: 03/07/23 13:31 Chest x-ray was interpreted by the radiologist and I reviewed the impression. This patient has haziness in the left lung lower zone. This could be secondary to atelectasis versus developing consolidation/infiltrate. There is mild cardiomegaly and blunting of the left costovertebral angle. This could be secondary to mild pleural effusion. The medical issue in this patient is of moderate complexity. The level of compl exity and the work-up performed is based on review of the patient's past medical history, review the patient's medication list, review the patient's drug allergy list, history of present illness and physical findings on examination. This patient work-up includes twelve-lead EKG, troponin level, D-dimer level, chest x-ray, CBC and CMP. The above-stated findings on the chest x-ray are noted. The laboratory results were interpreted by me. The patient appears to have an early infiltrate in the left lower lobe. This patient is hemodynamically stable and can be treated as an outpatient. We will start him on Rocephin 1 g intravenously here in the emergency department and then send a prescription to his home for azithromycin x5 days. Blood Culture(s) Obtained: No Antibiotics given: Yes Counseled pt/family regarding: lab results, diagnosis, need for follow-up, rad results Medical Desision Making - Independent Historian Additional History obtained from: Relative/friend ([id number]) - Diagnostic Testing Diagnostic test were ordered, analyzed, and reviewed by me: Yes Radiological Interpretation: Reviewed by me, Teleradiologist Report - Risk of complications The pt has a mod risk of morbidity or mortality based on: Need for prescription drug management - Departure Departure Disposition: Home Clinical Impression: Left pulmonary infiltrate on CXR, Leukocytosis Condition: Stable Critical Care Time: No Referrals: KELLY SHEN [Primary Care Provider] - Follow up/PCP as directed Additional Instructions: Take your antibiotics and other medication as prescribed. Follow-up with your primary care provider on 03/10/2023 for further evaluation and management. Prescriptions: Azithromycin 250 mg [Zithromax 250 MG TABLET] 250 mg PO ZPACK #6 tablet
[2023-03-07 12:12] VITALS: TEMP 98.4
[2023-03-07 12:50] LABS: BASOPHIL % 0.5 % (0.0-0.4); Basophil (Absolute #) 0.06 x10^3/uL (0-0.4); Eosinophil % 1.3 % (0.00-5.0); Eosinophil (Absolute #) 0.14 x10^3/uL (0-0.5); Hematocrit 39.6 % (42-50); Hemoglobin 12.7 g/dL (12.5-18.0); IMMATURE GRAN # 0.04 x10^3u/L (0.00-0.03); IMMATURE GRAN % 0.4 % (0.00-0.4); Lymphocytes % 11.6 % (24.0-44.0); Mean Cell Volume 86.8 fL (78-100); Mean Corpuscular Hemoglobin 27.9 pg (26-32); Mean Corpuscular Hgb Concent. 32.1 g/dL (32-36); Mean Platelet Volume 9.6 fL (7.5-11.0); Monocyte (Absolute #) 0.85 x10^3/uL (0.0-1.3); Monocytes % 7.6 % (0.0-12.0); Neutrophil % 78.6 % (36.0-66.0); Platelet Count 325 x10^3/uL (150-450); Red Blood Count 4.56 x10^6/uL (4.1-5.6); Red Cell Distribution Width 14.2 % (11.5-14.0); White Blood Count 11.2 x10^3/uL (4.0-10.5)
[2023-03-07 13:05] LABS: D-DIMER QUANTITATIVE 0.21 mg/L (0.0-0.50); INR 0.94 (0.8-3.0); PROTIME 10.3 SECONDS (9.4-12.5)
[2023-03-07 13:15] LABS: ALBUMIN 4.3 g/dL (3.5-5.0); ALKALINE PHOSPHATASE 132 U/L (38-126); ANION GAP 13.4 MEQ/L (5-15); BLOOD UREA NITROGEN 6 mg/dL (9-20); CHLORIDE 95 mmol/L (98-107); Calcium 8.9 mg/dL (8.4-10.2); Carbon Dioxide 27 mmol/L (22-30); Creatinine 1 0.57 mg/dL (0.66-1.25); EST GLOMERULAR FILTRATION RATE > 60.0 ML/MIN; Glucose 98 mg/dL (74-106); Potassium 3.7 mmol/L (3.5-5.1); SGOT/AST 18 U/L (17-59); SGPT/ALT 19 U/L (0-50); SODIUM 132 mmol/L (137-145); TROPONIN < 0.012 ng/mL (0.000-0.034); Total Protein 7.6 g/dL (6.3-8.2)
--- NOTE | 2023-03-07 13:16 | XRAY ---
CLINICAL HISTORY:Left lateral CP COMPARISON:None. TECHNIQUE:X-ray of the chest, AP FINDINGS: Haziness is seen in left lower zone. Blunting of left costophrenic angle likely due to mild pleural effusion. Mild increase in transverse cardiac diameter. normal configuration of the mediastinum. The alis are normal in size and position. Right costophrenic angle appears sharp. Bony thorax appears unremarkkable. IMPRESSION: Haziness is seen in left lower zone could be atelectasis or developing consolidation, follow up suggested. Blunting of left costophrenic angle likely due to mild pleural effusion. Mild cardiomegaly. Electronically Signed by: Luz Brunner MD. (03/07/2023 12:14:22 MULTI TOWNSHIP ASSESSOR)
[2023-03-07] MEDS ORDERED: Zithromax 250 MG TABLET PO ONE (13:35)
[2023-03-07] MEDS ORDERED: Zithromax 250 MG TABLET ONE (14:11)
[2023-03-07] MEDS ORDERED: ROCEPHIN 1 Gm-D5w 50 ml Bag** 1 G/50 ML IVPB IV STA (14:15)
[2023-03-07] MEDS ORDERED: ROCEPHIN 1 Gm-D5w 50 ml Bag** 1 G/50 ML IVPB IV ONE (14:21)
[2023-03-07 14:25] VITALS: BP 192/106; PULSE 88; RESP 19; O2SAT 100
== END 2023-03-07 14:50 | disposition home or self-care (01) ==
LOC: ED 11:53
DX: R91.8 Other nonspecific abnormal finding of lung field (principal); D72.829 Elevated white blood cell count, unspecified; R07.9 Chest pain, unspecified; E78.5 Hyperlipidemia, unspecified; I10 Essential (primary) hypertension; Z79.899 Other long term (current) drug therapy
CPT/HCPCS: 36000; 36415; 71045; 80053; 84484; 85025; 85379; 85610; 93005; 93041; 94760; 99284; J0696; A9270-GY

== ENCOUNTER 2023-07-25 18:55 | Emergency (ER) | payer MEDICARE ==
--- NOTE | 2023-07-25 19:07 | ERPHSYRPT ---
- History of Present Illness Time Seen by Provider: 07/25/23 19:06 Source: patient, family Physician History: This is a 67-year-old white male patient who has a degree of mental disability and is a patient of Dr. Shen and was brought into the emergency department by his [id number] for evaluation management of 2 to 3-day history of persistent cough. He has not had a fever. He denies chest pain. He has no abdominal pain. He has no nausea vomiting or diarrhea symptoms. Patient was out in the cold and he is concerned that maybe the cold wind gave him a cough. Patient has a history of hypothyroidism, COPD, hyperlipidemia, gastroesophageal reflux disease, ADD, inflammatory bowel disease and hypertension. Timing/Duration: today, day(s) (2 to 3 days), worse Cough Quality/Degree: mild, dry cough Possible Cause: occasional episodes Modifying Factors: Improves With: activity (Persons), coughing Associated Symptoms: cough, sore throat, No shortness of breath Allergies/Adverse Reactions: penicillin G Allergy (Intermediate, Verified 07/25/23 19:27) Hives Home Medications: Albuterol Sulfate [Ventolin Hfa] 18 gm IH QID PRN 02/17/20 [History] Atorvastatin Calcium 20 mg PO HS 02/17/20 [History] Ergocalciferol (Vitamin D2) [Vitamin D2] 1,250 mcg PO WEEKLY 02/17/20 [History] Omeprazole 20 mg PO DAILY 02/17/20 [History] modafiniL [Provigil] 200 mg PO QAM 02/17/20 [History] Famotidine 40 mg PO DAILY 03/07/23 [History] Fluticasone/Umeclidin/Vilanter [Trelegy Ellipta 200-62.5-25] 1 puff PO DAILY 08/28 [History] Levothyroxine Sodium [Synthroid] 112 mcg PO DAILY 03/07/23 [History] Hx Tetanus, Diphtheria Vaccination/Date Given: Yes Hx Influenza Vaccination/Date Given: Yes Hx Pneumococcal Vaccination/Date Given: Yes Travel Risk - International Travel Have you traveled outside of the country in past 3 weeks: No - Coronavirus Screening Are you exhibiting any of the following symptoms?: Yes Symptoms: Cough: New Onset Close contact with a COVID-19 positive Pt in past 14-21 Days: No - Vaccine Status Have you recieved a Covid-19 vaccination: Yes Parent Partner: [employer] - Vaccination Dates Date of 2cond Vaccination (if applicable): unknown - Review of Systems Constitutional: No Symptoms Eyes: No Symptoms Ears, Nose, & Throat: No Symptoms, Throat Pain (Mild) Respiratory: Cough Cardiac: No Symptoms Abdominal/Gastrointestinal: No Symptoms Genitourinary Symptoms: No Symptoms Musculoskeletal: No Symptoms Skin: No Symptoms Neurological: No Symptoms Psychological: No Symptoms Endocrine: No Symptoms Hematologic/Lymphatic: No Symptoms Immunological/Allergic: No Symptoms All Other Systems: Reviewed and Negative - Past Medical History Pertinent Past Medical History: Yes Cardiac History: Hypertension Respiratory History: Other Endocrine Medical History: Hypothyroidism GI Medical History: Diverticulitis, GERD, Hernia Psycho-Social History: Anxiety, Attention Deficit Disorder, Depression Other Medical History: MILD RETARDATION. sees dr garcia and uses inhalers- unsure of diagnosis - Past Surgical History Past Surgical History: Yes Gastrointestinal: Hernia Repair - Social History Smoking Status: Never smoker Exposure to second hand smoke: No Drug Use: none Patient Lives Alone: Yes (lives with brother) - Nursing Vital Signs Nursing Vital Signs: Initial Vital Signs Temperature 97.9 F 07/25/23 19:30 Pulse Rate 94 H 07/25/23 19:30 Respiratory Rate 18 07/25/23 19:30 Blood Pressure 178/99 07/25/23 19:30 O2 Sat by Pulse Oximetry 97 07/25/23 19:30 Pain Scale Pain Intensity 2 - Physical Exam General Appearance: no apparent distress, alert Eye Exam: PERRL/EOMI, eyes nml inspection Ears, Nose, Throat Exam: normal ENT inspection, moist mucous membranes Neck Exam: normal inspection, non-tender, supple, full range of motion Respiratory Exam: normal breath sounds, lungs clear, airway intact, No chest tenderness, No respiratory distress Cardiovascular Exam: regular rate/rhythm, normal heart sounds, normal peripheral pulses Gastrointestinal/Abdomen Exam: soft, normal bowel sounds, No tenderness Rectal Exam: not done Back Exam: normal inspection, normal range of motion, CVA tenderness Extremity Exam: normal inspection, normal range of motion, pelvis stable Neurologic Exam: alert, oriented x 3, cooperative, 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 nml as tested, normal mood/affect, nml cerebellar function, nml station & gait, sensation nml Skin Exam: normal color, warm, dry Lymphatic Exam: No adenopathy SpO2 Interpretation: normal O2 Delivery: Room Air - Course Nursing assessment & vital signs reviewed: Yes Ordered Tests: Active Orders 24 hr Category Date Time Status CHEST 1 VIEW (PORTABLE) Stat Exams 07/25/23 19:32 Completed Lab/Rad Data: Laboratory Results 07/25/23 07/25/23 Range/Units 19:53 19:53 Influenza Type A Ag NEGATIVE (NEGATIVE) Influenza Type B Ag NEGATIVE (NEGATIVE) RSV (PCR) NEGATIVE (NEGATIVE) SARS-CoV-2 (PCR) NEGATIVE (NEGATIVE) Group A Strep Antibody NOT DETECTED (NEGATIVE) - Progress Progress: re-examined, unchanged Air Movement: good Progress Note: 07/25/23 20:02 This patient's medical issue is 1 of low complexity. The level of complexity and the workup performed is based on review of the patient's past medical history, review of the patient's medication list, review the patient drug allergy list, history present illness, and physical findings on examination. The workup in this patient includes a chest x-ray, viral swabs and group A strep swab. 07/25/23 20:34 I interpreted the chest x-ray on this patient. There is no evidence of any acute cardiopulmonary process. There are chronic features present. After I had interpreted the chest x-ray, the final reading by the radiologist was reviewed by me. The impression is chronic features no acute process. Blood Culture(s) Obtained: No Antibiotics given: No Counseled pt/family regarding: lab results, need for follow-up, rad results Medical Desision Making - Independent Historian Additional History obtained from: Relative/friend - Diagnostic Testing Diagnostic test were ordered, analyzed, and reviewed by me: Yes Radiological Interpretation: Interpreted by me - Risk of complications The pt has a mod risk of morbidity or mortality based on: Need for prescription drug management - Departure Departure Disposition: Home Clinical Impression: Bronchitis Condition: Stable Critical Care Time: No Referrals: KELLY SHEN [Primary Care Provider] - Follow up/PCP as directed Additional Instructions: Drink plenty of fluids. Take your medications as prescribed. Avoid any exposure to use any type of smoke. Call your primary care provider on 07/27/2023 to make arrangements for follow-up appointment for further evaluation management. Prescriptions: Prednisone 10 mg [Deltasone 10 mg] 10 mg PO TID #12 tablet Hydrocodone/Acetaminophen [Hydrocodone-Acetamn 7.5-325/15] 10 ml PO Q8H PRN #120 ml MDD 30 ml PRN Reason: Cough
[2023-07-25 19:39] VITALS: RESP 18; TEMP 97.9
[2023-07-25 20:09] VITALS: BP 136/99; PULSE 90
[2023-07-25 20:10] VITALS: O2SAT 97
--- NOTE | 2023-07-25 20:19 | XRAY ---
Indication: Cough. History COPD. Comparison: March 07, 2023 Portable chest again hyperinflated and is now clear. Heart not enlarged again with tortuous descending aorta. Bony thorax intact again with osteopenia and mild degenerative changes. Impression: Nonacute chest with chronic features.
[2023-07-25 20:32] LABS: INFLUENZA A NEGATIVE (NEGATIVE); INFLUENZA B NEGATIVE (NEGATIVE); RESPIRATORY SYNCTIAL VIRUS NEGATIVE (NEGATIVE); SARS-CoV-2 Xpert Express NEGATIVE (NEGATIVE)
[2023-07-25] MEDS ORDERED: DELTASONE 20 MG PO ONE (20:33)
[2023-07-25] MEDS ORDERED: HYDROCODONE-ACETAMIN 2.5-108/5 ML SOLUTION PO STA (20:33)
[2023-07-25] MEDS ORDERED: DELTASONE 20 MG ONE (20:40)
[2023-07-25] MEDS ORDERED: HYDROCODONE-ACETAMIN 2.5-108/5 ML SOLUTION ONE (20:40)
== END 2023-07-25 20:59 | disposition home or self-care (01) ==
LOC: ED 18:55
DX: J40 Bronchitis, not specified as acute or chronic (principal); R05.1 Acute cough; E78.5 Hyperlipidemia, unspecified; I10 Essential (primary) hypertension; Z79.891 Long term (current) use of opiate analgesic; Z79.52 Long term (current) use of systemic steroids; Z79.899 Other long term (current) drug therapy
CPT/HCPCS: 0241U; 71045; 87651; 99283; A9270-GY

== ENCOUNTER 2023-10-25 10:12 | Emergency (ER) | payer MEDICARE ==
--- NOTE | 2023-10-25 10:14 | ERPHSYRPT ---
- History of Present Illness Time Seen by Provider: 10/25/23 10:14 Source: patient, family Exam Limitations: no limitations Physician History: This is a 68-year-old white male patient who has not been feeling well lately per family and friends who provided additional information on this patient. 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 Today, while at [facility], it is reported that the patient was not feeling well became dizzy and hit his head on the left [facility] area. The patient arrives to the emergency department awake alert and oriented. Patient does have a history of hypothyroidism, hyperlipidemia, gastroesophageal reflux disease, anxiety, ADD. His primary care physician is Dr. Shen and he sees a supervisor of way, Dr. Garcia. Patient denies abdominal pain. Patient denies chest pain. He does have pain in the right knee. He states he fell onto his right knee today as well as hitting his head. Occurred: just prior to arrival Severity: mild Head Injury Location: temporal (Left) Method of Injury: unknown Loss of Consciousness: no loss of consciousness Associated Symptoms: denies symptoms (Currently denies symptoms. However, people around him stated that he complained of some dizziness prior to him falling) Allergies/Adverse Reactions: penicillin G Allergy (Intermediate, Verified 10/25/23 10:41) Hives Home Medications: Albuterol Sulfate [Ventolin Hfa] 18 gm IH QID PRN 02/17/20 [History] Atorvastatin Calcium 20 mg PO HS 02/17/20 [History] Ergocalciferol (Vitamin D2) [Vitamin D2] 1,250 mcg PO WEEKLY 02/17/20 [History] Omeprazole 20 mg PO DAILY 02/17/20 [History] modafiniL [Provigil] 200 mg PO QAM 02/17/20 [History] Famotidine 40 mg PO DAILY 03/07/23 [History] Fluticasone/Umeclidin/Vilanter [Trelegy Ellipta 200-62.5-25] 1 puff PO DAILY 03/07/23 [History] Levothyroxine Sodium [Synthroid] 112 mcg PO DAILY 03/07/23 [History] Hx Tetanus, Diphtheria Vaccination/Date Given: Yes Hx Influenza Vaccination/Date Given: Yes Hx Pneumococcal Vaccination/Date Given: Yes Travel Risk - International Travel Have you traveled outside of the country in past 3 weeks: No - Emerging Infectious Disease Are you exhibiting symptoms associated with any current EIDs: No - Review of Systems Constitutional: No Symptoms Eyes: No Symptoms Ears, Nose, & Throat: No Symptoms Respiratory: No Symptoms Cardiac: No Symptoms Abdominal/Gastrointestinal: No Symptoms Genitourinary Symptoms: No Symptoms Musculoskeletal: No Symptoms Skin: No Symptoms Neurological: Dizziness Psychological: No Symptoms Endocrine: No Symptoms Hematologic/Lymphatic: No Symptoms Immunological/Allergic: No Symptoms All Other Systems: Reviewed and Negative - Past Medical History Pertinent Past Medical History: Yes Neurological History: No Pertinent History ENT History: No Pertinent History Cardiac History: Hypertension Respiratory History: Other Endocrine Medical History: Hypothyroidism GI Medical History: Diverticulitis, GERD, Hernia Psycho-Social History: Anxiety, Attention Deficit Disorder, Depression Other Medical History: MILD RETARDATION. sees dr garcia and uses inhalers- unsure of diagnosis - Past Surgical History Past Surgical History: Yes Neuro Surgical History: No Pertinent History Cardiac: No Pertinent History Respiratory: No Pertinent History Gastrointestinal: Hernia Repair Genitourinary: No Pertinent History Musculoskeletal: No Pertinent History Male Surgical History: No Pertinent History - Social History Smoking Status: Never smoker Exposure to second hand smoke: No Drug Use: none Patient Lives Alone: Yes (lives with brother) - Nursing Vital Signs Nursing Vital Signs: Initial Vital Signs Temperature 98.2 F 10/25/23 10:42 Pulse Rate 80 10/25/23 10:42 Respiratory Rate 22 10/25/23 10:42 Blood Pressure 172/105 10/25/23 10:42 O2 Sat by Pulse Oximetry 99 10/25/23 10:42 Pain Scale Pain Intensity 0 - Fowler Coma Score Best Eye Response (Ivan): (4) open spontaneously Best Verbal Response (Ivan): (5) oriented Best Motor Response (Fowler): (6) obeys commands Fowler Total: 15 - Physical Exam General Appearance: no apparent distress, alert, anxiety Head Injury: tenderness (An abrasion left [facility] region) Eye Exam: bilateral eye: normal inspection, PERRL, EOMI ENT Exam: airway nml, nml ext.inspection Neck Exam: supple, trachea midline, full range of motion, normal alignment, normal inspection Cardiovascular/Respiratory Exam: chest non-tender, normal breath sounds, regular rate/rhythm, heart sounds normal, no respiratory distress Gastrointestinal/Abdominal Exam: soft, non tender, no distention, no mass, no guarding, no ecchymosis, no organomegaly, no pulsatile mass, normal bowel sounds Rectal Exam: not done Back Exam: normal inspection, normal range of motion, No CVA tenderness, No vertebral tenderness Extremity Exam: non-tender, normal range of motion, normal inspection, normal capillary refill, no calf tenderness, no pedal edema, pelvis stable, calf tenderness Mental Status Exam: alert, 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 When compared to the twelve-lead EKG that was performed on 03/07/2023, today's EKG shows resolution of the right bundle branch block and PVCs) Ordered Tests: Active Orders 24 hr Category Date Time Status EKG-ER Only STAT Care 10/25/23 11:45 Active IV Insertion STAT Care 10/25/23 11:45 Active Pulse Oximetry (ED) STAT Care 10/25/23 11:45 Active HEAD WITHOUT CONTRAST [CT] Stat Exams 10/25/23 11:45 Completed KNEE (1 OR 2 VIEW) Stat Exams 10/25/23 11:45 Taken CBC W DIFF Stat Lab 10/25/23 Completed CMP Stat Lab 10/25/23 Completed TROPONIN Q4H Lab 10/25/23 Completed TROPONIN Q4H Lab 10/25/23 16:00 Ordered TROPONIN Q4H Lab 10/25/23 20:00 Ordered TSH [TSH, 3RD Generation] Stat Lab 10/25/23 Completed UA W/RFX UR CULTURE Stat Lab 10/25/23 11:45 Completed Medication Summary Discontinued Medications Generic Name Dose Route Start Last Admin Trade Name Freq PRN Reason Stop Dose Admin Sodium Chloride 1,000 mls @ 999 mls/hr 10/25/23 11:45 10/25/23 13:10 Sodium Chloride 0.9% 1000 Ml IV 10/25/23 12:45 Infused .Q1H1M STA Infusion Sodium Chloride Confirm 10/25/23 11:52 Sodium Chloride 0.9% 1000 Ml Administered 10/25/23 11:53 Dose 1,000 mls @ .ROUTE [facility] Lab/Rad Data: Laboratory Result Diagrams 10/25/23 Unknown 10/25/23 Unknown Laboratory Results 10/25/23 10/25/23 10/25/23 Range/Units Unknown Unknown Unknown WBC 9.2 (4.0-10.5) x10^3/uL RBC 4.58 (4.1-5.6) x10^6/uL Hgb 12.9 (12.5-18.0) g/dL Hct 38.3 L (42-50) % MCV 83.6 (78-100) fL MCH 28.2 (26-32) pg MCHC 33.7 (32-36) g/dL RDW 14.8 H (11.5-14.0) % Plt Count 369 (150-450) x10^3/uL MPV 9.7 (7.5-11.0) fL Gran % 65.9 (36.0-66.0) % Immature Gran % (Auto) 0.5 H (0.00-0.4) % Nucleat RBC Rel Count 0.0 (0.00-0.1) % Eos # (Auto) 0.63 H (0-0.5) x10^3/uL Immature Gran # (Auto) 0.05 H (0.00-0.03) x10^3u/L Absolute Lymphs (auto) 1.53 (1.0-4.6) x10^3/uL Absolute Monos (auto) 0.88 (0.0-1.3) x10^3/uL Absolute Nucleated RBC 0.00 (0.00-0.01) x10^3u/L Lymphocytes % 16.6 L (24.0-44.0) % Monocytes % 9.5 (0.0-12.0) % Eosinophils % 6.8 H (0.00-5.0) % Basophils % 0.7 (0.0-0.4) % Absolute Granulocytes 6.08 (1.4-6.9) x10^3/uL Basophils # 0.06 (0-0.4) x10^3/uL Sodium 127 L (135-145) mmol/L Potassium 3.4 L (3.5-5.1) mmol/L Chloride 92 L (98-107) mmol/L Carbon Dioxide 29 (22-30) mmol/L Anion Gap 9.7 (5-15) MEQ/L BUN 6 L (9-20) mg/dL Creatinine 0.57 L (0.66-1.25) mg/dL Estimated GFR 108.1 ML/MIN Glucose 100 (74-106) mg/dL Calcium 8.8 (8.4-10.2) mg/dL Total Bilirubin 0.50 (0.2-1.3) mg/dL AST 26 (17-59) U/L ALT 19 (0-50) U/L Alkaline Phosphatase 108 (38-126) U/L Troponin I < 0.012 (0.000-0.033) ng/mL Serum Total Protein 7.6 (6.3-8.2) g/dL Albumin 4.0 (3.5-5.0) g/dL Free T4 (0.78-2.19) ng/dL TSH 3rd Generation (0.470-4.680) mIU/L Urine Color (Yellow) Urine Appearance (Clear) Urine pH (4.6-8.0) Ur Specific [place] (1.005-1.030) Urine Protein (Negative) Urine Glucose (UA) (Negative) mg/dL Urine Ketones (Negative) Urine Blood (Negative) Urine Nitrite (Negative) Urine Bilirubin (Negative) Urine Urobilinogen (0.2) mg/dL Ur Leukocyte Esterase (Negative) U Hyaline Cast (Auto) (0-2) /LPF Urine Microscopic RBC (0-5) /HPF Urine Microscopic WBC (0-5) /HPF Ur Epithelial Cells (None Seen) /HPF Urine Bacteria (None Seen) /HPF Urine Culture Reflexed (NO) 10/25/23 10/25/23 10/25/23 Range/Units Unknown Unknown 11:45 WBC (4.0-10.5) x10^3/uL RBC (4.1-5.6) x10^6/uL Hgb (12.5-18.0) g/dL Hct (42-50) % MCV (78-100) fL MCH (26-32) pg MCHC (32-36) g/dL RDW (11.5-14.0) % Plt Count (150-450) x10^3/uL MPV (7.5-11.0) fL Gran % (36.0-66.0) % Immature Gran % (Auto) (0.00-0.4) % Nucleat RBC Rel Count (0.00-0.1) % Eos # (Auto) (0-0.5) x10^3/uL Immature Gran # (Auto) (0.00-0.03) x10^3u/L Absolute Lymphs (auto) (1.0-4.6) x10^3/uL Absolute Monos (auto) (0.0-1.3) x10^3/uL Absolute Nucleated RBC (0.00-0.01) x10^3u/L Lymphocytes % (24.0-44.0) % Monocytes % (0.0-12.0) % Eosinophils % (0.00-5.0) % Basophils % (0.0-0.4) % Absolute Granulocytes (1.4-6.9) x10^3/uL Basophils # (0-0.4) x10^3/uL Sodium (135-145) mmol/L Potassium (3.5-5.1) mmol/L Chloride (98-107) mmol/L Carbon Dioxide (22-30) mmol/L Anion Gap (5-15) MEQ/L BUN (9-20) mg/dL Creatinine (0.66-1.25) mg/dL Estimated GFR ML/MIN Glucose (74-106) mg/dL Calcium (8.4-10.2) mg/dL Total Bilirubin (0.2-1.3) mg/dL AST (17-59) U/L ALT (0-50) U/L Alkaline Phosphatase (38-126) U/L Troponin I (0.000-0.033) ng/mL Serum Total Protein (6.3-8.2) g/dL Albumin (3.5-5.0) g/dL Free T4 1.12 (0.78-2.19) ng/dL TSH 3rd Generation 4.737 H (0.470-4.680) mIU/L Urine Color Yellow (Yellow) Urine Appearance Clear (Clear) Urine pH 6.5 (4.6-8.0) Ur Specific [place] <=1.005 (1.005-1.030) Urine Protein Negative (Negative) Urine Glucose (UA) Negative (Negative) mg/dL Urine Ketones Negative (Negative) Urine Blood Negative (Negative) Urine Nitrite Negative (Negative) Urine Bilirubin Negative (Negative) Urine Urobilinogen 0.2 (0.2) mg/dL Ur Leukocyte Esterase Negative (Negative) U Hyaline Cast (Auto) NONE SEEN (0-2) /LPF Urine Microscopic RBC 0-2 (0-5) /HPF Urine Microscopic WBC 0-2 (0-5) /HPF Ur Epithelial Cells None Seen (None Seen) /HPF Urine Bacteria None Seen (None Seen) /HPF Urine Culture Reflexed NO (NO) - Progress Progress: improved, pain not gone completely, re-examined Progress Note: 10/25/23 11:42 My medical decision making and the assignment of moderate level complexity in this patient's medical issue today is based on review of the patient's past medical history, review of the patient's medication list, review of the patient's drug allergy list, history present illness and physical findings on examination. The workup in this patient includes placement of intravenous line, infusion of normal saline solution, urinalysis, twelve-lead EKG, magnesium level, CT scan of the head, x-ray of the right knee, viral swabs and monotest. We will also order a troponin. Differential diagnosis dehydration, urinary tract infection, myocardial infarct ion, electrolyte abnormalities, viral illness 10/25/23 15:12 I interpreted the patient's laboratory data results. The patient's TSH is elevated. This may represent subclinical hypothyroidism. I will discuss with the patient's brother who is his primary healthcare science specialist and have him discuss thyroid supplementation with the patient's primary care provider. The remainder of the laboratory data results show no acute, emergent medical issue. The x-ray of the right knee was interpreted by me. There is no evidence of any acute fracture or dislocation. CT scan of the head without contrast was interpreted by the radiologist and I reviewed the impression. These findings were discussed with the patient and the patient's brother. There are no CT evidence for acute infarction or recent hemorrhage. There is no definite skull fracture. 10/25/23 15:15 The patient has chronic hyponatremia. I looked over several past sodium levels in this patient. It runs anywhere between 125 and 132. Today's value is 127. Patient did receive normal saline solution. I will also have the patient's brother discussed this with the patient's primary care provider. Counseled pt/family regarding: lab results, diagnosis, need for follow-up, rad results Medical Desision Making - Independent Historian Additional History obtained from: Family - Diagnostic Testing Diagnostic test were ordered, analyzed, and reviewed by me: Yes Radiological Interpretation: Reviewed by me, Teleradiologist Report - Risk of complications Low Risk: Low risk of morbidity from additional dx testing or treatment - Departure Departure Disposition: Home Clinical Impression: Episode of syncope, Head injury, Elevated TSH, Hyponatremia Condition: Stable Critical Care Time: No Referrals: KELLY SHEN [Primary Care Provider] - Follow up/PCP as directed Additional Instructions: Drink plenty of fluids. Take your medication as prescribed. Call the patient's primary care provider tomorrow, 10/26/2023 to discuss the topics of low sodium, syncope and thyroid function.
[2023-10-25 11:08] VITALS: TEMP 98.2
[2023-10-25] MEDS ORDERED: Sodium Chloride 0.9% 1000 ML 1,000 ML ONE (11:52)
[2023-10-25 11:53] LABS: Absolute Neutrophil Ct (ANC) 6.08 x10^3/uL (1.4-6.9); BASOPHIL % 0.7 % (0.0-0.4); Basophil (Absolute #) 0.06 x10^3/uL (0-0.4); Eosinophil % 6.8 % (0.00-5.0); Eosinophil (Absolute #) 0.63 x10^3/uL (0-0.5); Hematocrit 38.3 % (42-50); Hemoglobin 12.9 g/dL (12.5-18.0); IMMATURE GRAN # 0.05 x10^3u/L (0.00-0.03); IMMATURE GRAN % 0.5 % (0.00-0.4); Lymphocyte (Absolute #) 1.53 x10^3/uL (1.0-4.6); Lymphocytes % 16.6 % (24.0-44.0); Mean Cell Volume 83.6 fL (78-100); Mean Corpuscular Hemoglobin 28.2 pg (26-32); Mean Corpuscular Hgb Concent. 33.7 g/dL (32-36); Mean Platelet Volume 9.7 fL (7.5-11.0); Monocyte (Absolute #) 0.88 x10^3/uL (0.0-1.3); Monocytes % 9.5 % (0.0-12.0); Neutrophil % 65.9 % (36.0-66.0); Platelet Count 369 x10^3/uL (150-450); Red Blood Count 4.58 x10^6/uL (4.1-5.6); Red Cell Distribution Width 14.8 % (11.5-14.0); White Blood Count 9.2 x10^3/uL (4.0-10.5)
[2023-10-25] MEDS: Sodium Chloride 0.9% 1000 ML 1,000 ML IV STA (11:53)
[2023-10-25 11:54] LABS: Appearance Clear (Clear); Bilirubin Negative (Negative); Blood Negative (Negative); Glucose, Urine Negative (Negative); Ketones Negative (Negative); Leukocyte Esterase Negative (Negative); Nitrite Negative (Negative); Ph 6.5 (4.6-8.0); Protein,Urine Dip Negative (Negative); Specific Gravity <=1.005 (1.005-1.030); Urobilinogen 0.2 mg/dL (0.2)
[2023-10-25 12:02] LABS: Bacteria None Seen /HPF (None Seen); Epithelial Cells None Seen /HPF (None Seen); Hyaline Casts NONE SEEN /LPF (0-2); RBC 0-2 /HPF (0-5); WBC 0-2 /HPF (0-5)
[2023-10-25 12:08] LABS: ADD URINE CULTURE? NO (NO)
[2023-10-25 12:13] LABS: ANION GAP 9.7 MEQ/L (5-15); BILIRUBIN,TOTAL 0.5 mg/dL (0.2-1.3); Calcium 8.8 mg/dL (8.4-10.2); Creatinine 1 0.57 mg/dL (0.66-1.25); EST GLOMERULAR FILTRATION RATE 108.1 ML/MIN; Potassium 3.4 mmol/L (3.5-5.1); Total Protein 7.6 g/dL (6.3-8.2)
--- NOTE | 2023-10-25 13:30 | XRAY ---
CLINICAL HISTORY: Head injury COMPARISON: None. TECHNIQUE: CT scan of the brain without contrast administration. Images were acquired in axial cuts with coronal and sagittal reformation. One of the following dose reduction techniques were utilized for this exam: Automated exposure control, adjustment of the mA and/or kV according to patient size, and use of iterative reconstruction. FINDINGS: No area of abnormally low or high attenuation value was seen. Bilateral periventricular small foci of hypodensity are noted. No CT evidence of acute infarction. Normal size, position, and configuration of the ventricular system. No shift of the midline structures. No evidence of intra or extra axial recent hematoma. Normal appearance of the posterior fossa structures including the brainstem and cerebellum. Bone window settings showed no evidence of fractures or destructive lesions. Bilateral proptosis is noted. IMPRESSION: 1. No evidence of acute infarction or recent hemorrhage. 2. No definite skull fractures. 3. Bilateral periventricular foci of hypodensity likely denoting mild microvascular ischemic changes. 4. Bilateral proptosis. Electronically Signed by: Luz Brunner MD. (10/25/2023 13:26:14 EDT)
[2023-10-25 13:35] VITALS: O2SAT 96
[2023-10-25 15:35] VITALS: BP 135/86; PULSE 76; RESP 18
--- NOTE | 2023-10-25 20:30 | XRAY ---
Indication: Status post fall. Injury. Comparison: None 2 view right knee obtained. Lateral limited due to suboptimal positioning. Age-related osteopenia. Query effusion. No other bony, articular, or soft tissue abnormalities.
== END 2023-10-25 15:56 | disposition home or self-care (01) ==
LOC: ED 10:12
DX: S09.90XA Unspecified injury of head, initial encounter (principal); W18.30XA Fall on same level, unspecified, initial encounter; Y92.22 Religious institution as the place of occurrence of the external cause; R55 Syncope and collapse; R94.6 Abnormal results of thyroid function studies; E87.1 Hypo-osmolality and hyponatremia; M25.561 Pain in right knee; E78.5 Hyperlipidemia, unspecified; Z79.899 Other long term (current) drug therapy
CPT/HCPCS: 36000; 36415; 70450; 73560; 80053; 81001; 84439; 84443; 84484; 85025; 93005; 94760; 96360; 99284